=== PATIENT | female | born 1940 | race Caucasian/White ===

== ENCOUNTER 2019-11-05 18:01 | Outpatient (CLI) | payer MEDICARE, BC, SELFPAY ==
--- NOTE | ~2019-11-05 | XR_ITS ---
EXAMINATION: XR chest 2V EXAM DATE: 11/05/2019 18:23 INDICATION: Shortness of breath. TECHNIQUE: Frontal and lateral projections of the chest obtained and reviewed. Comparison is made to prior examination from 02/24/2017. FINDINGS: There is severe chronic hyperinflation. There is ill-defined right lower lobe superior seg mental airspace disease probably pneumonia. Clinical correlation, follow-up exam to resolution is ind icated to exclude underlying cancer. The lungs are otherwise clear. There are no pleural effusions. The cardiomediastinal silhouette is within normal limits. There is no pneumothorax suspected. Ther e is moderate to severe thoracolumbar scoliosis. Left shoulder replacement. IMPRESSION: Ill-defined right lower lobe segmental airspace disease, clinical correlation and follow- up to resolution. Reviewed, dictated and finalized at location A. IMPRESSION: Ill-defined right lower lobe segmental airspace disease, clinical c orrelation and follow-up to resolution.
== END 2019-11-05 18:02 | disposition home or self-care (01) ==
LOC: ANHIMG 18:05
PROVIDERS: PCP Internal Medicine; Visit Provider Clinical Nurse Specialist
DX: R06.02 Shortness of breath (principal); R91.8 Other nonspecific abnormal finding of lung field
CPT/HCPCS: 71046

== ENCOUNTER 2019-11-15 15:59 | Outpatient (CLI) | payer MEDICARE, BC, SELFPAY ==
--- NOTE | ~2019-11-15 | CT_ITS ---
EXAMINATION: CT chest wo con EXAM DATE: 11/15/2019 16:22 INDICATION: Worsening shortness of breath. COPD. Carcinoid tumor of the lung. TECHNIQUE: Spiral CT of the chest without contrast. Axial, coronal and sagittal images were reviewe d. Coronal maximum intensity pixel images of chest reviewed. The dose-length product (DLP) for this examination was 128.20 mGy-cm. The exposure was tailored according to patient size (auto mA exposur e control), and iterative reconstruction (ASIR) was used as additional dose reduction technique. Comp arison is made to prior examination from 05/23/2017. Correlation was made with chest x-ray 11/05/2019. FINDINGS: Again there is severe hyperinflation and moderate to severe emphysema. Interval developmen t of right lower lobe hilar masslike opacity measuring about 3 x 4 cm, difficult to distinguish from hilar bronchovascular structures on this noncontrast study. There is interlobular septal thickening r adiating out of this into the right lower lobe. There are no pleural or pericardial effusions. Tra cheobronchial tree is patent. Enlarged precarinal lymph node measuring 1.8 x 1.2 cm, another smalle r precarinal lymph node probably metastatic. There is no pneumothorax. Heart normal in size. The re is mild coronary arterial calcification, arterial sclerosis. Left liver lobe cyst measuring 4 cm. There is moderate thoracolumbar scoliosis. There is thoracic spondylosis without osteoblastic or os teolytic lesions identified. IMPRESSION: 1. Right infrahilar infiltrative masslike opacity, probably cancer. 2. Precarinal lymphadenopathy. 3. Moderate to severe hyperinflation and emphysema. Reviewed, dictated and finalized at location A.
== END 2019-11-15 16:00 | disposition home or self-care (01) ==
LOC: ANHIMG 16:00
PROVIDERS: PCP Internal Medicine; Visit Provider Clinical Nurse Specialist
DX: C7A.090 Malignant carcinoid tumor of the bronchus and lung (principal); R06.02 Shortness of breath; J44.9 Chronic obstructive pulmonary disease, unspecified; R91.8 Other nonspecific abnormal finding of lung field; R59.0 Localized enlarged lymph nodes; J43.9 Emphysema, unspecified
CPT/HCPCS: 71250

== ENCOUNTER 2019-12-03 12:20 | Outpatient (CLI) | payer MEDICARE, BC, SELFPAY ==
--- NOTE | ~2019-12-03 | PE_ITS ---
EXAMINATION: PET skull to mid thigh DATE: 12/03/2019 14:06 INDICATION: Lung cancer TECHNIQUE: Blood glucose level was 96 mg/dL. 9.098 mCi of 18-fluorodeoxyglucose (18-FDG) was administ ered i.v. Low dose computed tomography (CT) images were acquired from the base of the brain to the pr oximal thighs for attenuation correction and anatomic localization. Positron emission tomography (PET ) images were acquired in the same distribution beginning 60 minutes after injection. The dose-length product (DLP) was 222.79 mGy-cm. COMPARISON: 11/15/2019, 01/17/2017 FINDINGS: Head/neck: FDG uptake in the oral cavity and vocal cords without suspicious CT correlate is likely ph ysiologic. Chest: There is an approximately 4.6 x 3.4 cm right hilar mass with abnormal FDG uptake and SUV max o f 7.1. There are pathologically enlarged right hilar, precarinal, and subcarinal lymph nodes with abn ormal FDG uptake and SUV max of 6.9. There is mild pleural thickening of the right lower lobe with as sociated mild FDG uptake. There is severe emphysema. No pleural effusion or pneumothorax is identifie d. The heart size is normal. There is calcified coronary artery atherosclerosis. Abdomen/pelvis/proximal thighs: There is a subtle 1.8 cm hypoattenuating lesion in liver segment III with abnormal FDG uptake and SUV max of 4.5. A second area of abnormal FDG uptake is seen in liver se gment which appears to correspond to a subtle 1 cm lesion. This demonstrates an SUV max of 3.9. A 4.9 cm cyst is present in the left hepatic lobe. The gallbladder is surgically absent. Physiologic FD G activity is present in the bowel and urinary tract. The spleen, pancreas, and adrenal glands are no rmal. The left kidney is unremarkable. Nonobstructing stones are present in the right kidney. There i s calcified atherosclerosis of the aorta and many of the other arteries. No pathologically enlarged a bdominal or pelvic lymph nodes are identified. There is no free intraperitoneal gas or evidence of aly wel obstruction. There is a chronic 5.5 cm cystic lesion of the left adnexa without suspicious FDG up take. Musculoskeletal: No abnormal FDG uptake is identified. There is severe cervical and thoracolumbar spo ndylosis. There are changes of left total shoulder arthroplasty. IMPRESSION: 1. Right hilar mass with abnormal FDG uptake, consistent with primary bronchogenic carcinoma. 2. Right hilar and mediastinal lymphadenopathy, liver lesions, and right pleural thickening, consiste nt with metastatic disease. Reviewed, dictated and finalized at location A. IMPRESSION: 1. Right hilar mass with abnormal FDG uptake, consistent with primary bronchoge cathy carcinoma. 2. Right hilar and mediastinal lymphadenopathy, liver lesions, and right pleura l thickening, consistent with metastatic disease.
[2019-12-03 12:44] LABS: Glucose Point of Care 96 (65-105)
== END 2019-12-03 12:21 | disposition home or self-care (01) ==
PROVIDERS: PCP Internal Medicine
DX: C34.01 Malignant neoplasm of right main bronchus (principal); R59.0 Localized enlarged lymph nodes; K76.9 Liver disease, unspecified
CPT/HCPCS: 78815; A9552

== ENCOUNTER 2019-12-30 14:30 | Outpatient (CLI) | payer MEDICARE, BC, SELFPAY ==
--- NOTE | ~2019-12-30 | CT_ITS ---
EXAMINATION: CT brain wo/w con EXAM DATE: 12/30/2019 15:17 INDICATION: Lung cancer, headache. Acute intractable headache. TECHNIQUE: Spiral CT of the head was performed without contrast. Axial, coronal and sagittal images were reviewed.. Patient was then injected with 100 cc Omnipaque 350 intravenous contrast and reimaged . Postcontrast axial, coronal, sagittal reformatted images reviewed. The dose-length product (DLP) f or this examination was 1059.33 mGy-cm. The exposure was tailored according to patient size, and ite rative reconstruction (ASIR) was used as additional dose reduction technique. Comparison is made to p rior examination from 02/24/2017. FINDINGS: There is no acute intraparenchymal hemorrhage. No evidence of intraparenchymal brain mass lesion. No evidence of acute infarction. Please note that initial head CT has limited sensitivity f or small or acute infarctions. There is mild periventricular and subcortical hypodensity, nonspecific but probably related to small vessel ischemic disease. There is moderate prominence of the sulci a nd ventricles related to cerebral atrophy. There is intracranial carotid arteriosclerosis. There a re no extra-axial collections. There is no mass effect or midline shift. Patient has had bilateral ocular lens surgery. Soft tissue is unremarkable. The visualized sinuses and mastoid air cells are well aerated. There are no areas of abnormal enhancement on the postcontrast images. IMPRESSION: 1. No acute intracranial findings. 2. Chronic age related findings. Reviewed, dictated and finalized at location A.
[2019-12-31 14:20] LABS: Estimated Glomerular Filt Rate 43
== END 2019-12-30 14:31 | disposition home or self-care (01) ==
LOC: ANHIMG 14:37
PROVIDERS: PCP Internal Medicine; Visit Provider Internal Medicine Medical Oncology
DX: C34.12 Malignant neoplasm of upper lobe, left bronchus or lung (principal); R51 Headache
CPT/HCPCS: 36415; 70470; Q9967

== ENCOUNTER 2020-01-05 04:50 | Inpatient (IN) | payer MEDICARE, BC, SELFPAY ==
[2020-01-05] VITALS (9 sets, daily range): BP systolic 106–160; BP diastolic 53–98; PULSE 66–84; RESP 15–22; TEMP 36.8–37.7; O2SAT 96–100; BMI 16.1
--- NOTE | ~2020-01-05 | MR_ITS ---
EXAMINATION: MR brain/brain stem wo/w con DATE: 01/06/2020 16:47 INDICATION: Headache. Lung cancer. TECHNIQUE: Magnetic resonance imaging (MRI) of the brain and brainstem was performed without and with 7 mL MultiHance intravenous contrast. Sequences included sagittal and axial T1-weighted FSE, axial d iffusion-weighted FS EPI, axial T2*-weighted GRE, axial T2-weighted FLAIR Propeller, and axial T2-tee ghted Propeller. Postcontrast sequences included axial, sagittal, and coronal T1-weighted FSE. Appare nt diffusion coefficient (ADC) maps were created. COMPARISON: Head CT 01/05/2020 FINDINGS: There are scattered areas of nonspecific increased T2-weighted signal intensity in the cere bral white matter and anthony. There is no intracranial hemorrhage, acute infarction, or abnormal intrac ranial mass lesion. The ventricles are normal in size. There are likely changes of ocular lens replac ement surgeries. The paranasal sinuses are clear. The mastoid air cells are normal. IMPRESSION: 1. Moderate nonspecific cerebral white matter disease and pontine disease, which likely represents ch ronic small vessel ischemic disease. 2. No evidence of metastatic disease. Reviewed, dictated and finalized at location A. IMPRESSION: 1. Moderate nonspecific cerebral white matter disease and pontine disease, whic h likely represents chronic small vessel ischemic disease. 2. No evidence of metastatic disease.
--- NOTE | ~2020-01-05 | XR_ITS ---
XR chest 2V DATE: 01/05/2020 07:39 INDICATION: Worsening shortness of breath TECHNIQUE: AP and lateral chest on 01/05/2020 at 0736 hours COMPARISON: 11/05/2019 PA and lateral chest 11/15/2019 CT chest FINDINGS: There is increased right perihilar mass density since 11/05/2019, suggesting right lung lina gnancy and associated adenopathy. There is some patchy infiltrate in the right mid and lower lung zon es. There are More B-lines identified in the right lower lung; interstitial tumor spread is not exc luded; differential diagnosis includes interstitial edema, possibly due to malignant venous obstructi on versus less likely interstitial pneumonitis. Bilateral hyperinflation consistent with COPD. Heart size is normal. There is aortic calcification. Left glenohumeral joint replacement. Dominant osteopenia. Scoliosis and degenerative changes of the t horacic and lumbar spine. IMPRESSION: Increased right perihilar mass density suggesting lung cancer and adenopathy; right lower lung currently B-lines, which may indicate lymphangitic spread of tumor or interstitial edema or les s likely interstitial pneumonitis. Mild right mid and lower lung infiltrate COPD Reviewed, dictated and finalized at location A. IMPRESSION: Increased right perihilar mass density suggesting lung cancer and a denopathy; right lower lung currently B-lines, which may indicate lymphangitic spread of tumor or interstitial edema or less likely interstitial pneumonitis. Mild right mid and lower lung infiltrate COPD
--- NOTE | ~2020-01-05 | CT_ITS ---
EXAMINATION: CT brain wo con DATE: 01/05/2020 06:35 INDICATION: Headache, vomiting. History of lung cancer. TECHNIQUE: Computed tomography (CT) of the head was performed without intravenous contrast. The mA wa s adjusted according to patient size. Iterative reconstruction technique was employed. Exam dose: 60 5.33 mGy-cm total exam DLP. COMPARISON: 12/30/2019 CT brain FINDINGS: Bilateral vertebral artery, basilar artery and bilateral carotid siphon internal carotid ar mackenzie calcifications. There is nonspecific diminished attenuation of the cerebral white matter, likely due to chronic small vessel ischemic changes. Small left basal ganglia chronic lacunar infarct. There is no evidence of intracranial hemorrhage, midline shift or mass effect. No intracranial mass l esion is evident. No subdural or epidural hematoma. No orbital mass lesion. Included paranasal sinuses and mastoid air cells are unremarkable. No fracture or bone destruction of the cranial vault. IMPRESSION: Cerebral atherosclerosis and chronic small vessel ischemic changes of the cerebral white matter Small chronic lacunar infarct of the left basal ganglia No acute intracranial finding or significant change since 12/30/2019 Reviewed, dictated and finalized at Location A. Reviewed, dictated and finalized at location A.
--- NOTE | ~2020-01-05 | XR_ITS ---
EXAMINATION: XR lumbar puncture diagnostic EXAM DATE: 01/08/2020 10:10 INDICATION: Persistent headache. Neck pain. TECHNIQUE: Procedure performed and completed on 01/08/2020 10:10. Informed consent was obtained from the patient for doing this procedure. I discussed benefits and risks including bleeding, infection, backache and headache. Alternatives also discussed. The DAP for this procedure was 0.3 Gycm2. A timeout procedure was performed. The back was prepped in standard sterile fashion with Betadine. L3/4 entry site was chosen under fluoroscopic guidance and infiltrated with 1% lidocaine. The thecal sac was then accessed from a right paracentral approach using a 3.5 22G needle. Opening pressure determined to be 9 centimeters, normal. 12 mL of clear cerebral spinal fluid were t hen drained and placed in 4 consecutive vials which were labeled and sent to lab for analysis. There were no immediate complications. IMPRESSION: Status post fluoroscopic guided lumbar puncture. Reviewed, dictated and finalized at location A.
--- NOTE | 2020-01-05 05:05 | ED.GENADULT ---
HPI - General Adult General Chief complaint: Headache <Kely Hanna MD - Last Filed: 01/05/20 07:37> Stated complaint: panic attack <Kely Hanna MD - Last Filed: 01/05/20 07:37> Time Seen by Provider: 01/05/20 05:05 <Kely Hanna MD - Last Filed: 01/05/20 07:37> Source: patient, family and EMS <Kely Hanna MD - Last Filed: 01/05/20 07:37> Mode of arrival: EMS <Kely Hanna MD - Last Filed: 01/05/20 07:37> Limitations: no limitations <Kely Hanna MD - Last Filed: 01/05/20 07:37> History of Present Illness HPI narrative: Patient is an 79-year-old female with a history of primary bronchogenic carcinoma, metastases to the liver, currently scheduled to start chemotherapy next week who presents for evaluation of headache pain. Patient with chronic headache pain over the past several weeks. Patient has tried at home morphine and oxycodone with minimal improvement in her symptoms. At times, the patient's headache is severe and causes her to have panic attacks. This evening, the patient awakened with a headache and began to have rapid breathing. called EMS and patient was transported to our facility. Patient has had some nausea and vomiting although she currently denies abdominal pain. Patient is asleep in the room, when I awaken her she states her headache is improving. Patient follows with Dr. Montanez. Patient recently was seen in this ER and had a CT head which was negative for metastases. <Kely Hanna MD - Last Filed: 01/05/20 07:37> Related Data Home medications: Home Medications Medication Instructions Recorded Confirmed acetaminophen 325 mg tablet 650 mg PO Q6H PRN tablet 05/01/19 01/05/20 aspirin 81 mg chewable tablet 81 mg PO DAILY 05/01/19 01/05/20 multivitamin 1 tablet PO DAILY 05/01/19 01/05/20 pramipexole 0.125 mg tablet 0.125 mg PO DAILY tablet 05/01/19 01/05/20 dexamethasone 4 mg PO TID 01/05/20 01/05/20 olaparib 200 mg PO BID 01/05/20 01/05/20 ondansetron 4 mg PO Q6H PRN 01/05/20 01/05/20 pantoprazole 40 mg PO QAM 01/05/20 01/05/20 <Kely Hanna MD - Last Filed: 01/05/20 07:37> Allergies/adverse reactions: Allergies Allergy/AdvReac Type Severity Reaction Status Date / Time alendronate sodium Allergy Unknown Unknown Verified 01/05/20 05:07 bupropion Allergy Unknown Unknown Verified 01/05/20 05:07 cilostazol Allergy Unknown Unknown Verified 01/05/20 05:07 ferrous sulfate Allergy Unknown Unknown Verified 01/05/20 05:07 hydrocodone Allergy Unknown Unknown Verified 01/05/20 05:07 levofloxacin Allergy Unknown Unknown Verified 01/05/20 05:07 loratadine Allergy Unknown Unknown Verified 01/05/20 05:07 Penicillins Allergy Unknown Unknown Verified 01/05/20 05:07 Quinolones Allergy Unknown Unknown Verified 01/05/20 05:07 <Kely Hanna MD - Last Filed: 01/05/20 07:37> Review of Systems Review of Systems: Narrative: CONSTITUTIONAL: Denies fever CARDIOVASCULAR: Denies chest pain RESPIRATORY: Denies cough or dyspnea. GASTROINTESTINAL: Denies abdominal pain, reports nausea and vomiting SKIN: Denies rash MUSCULOSKELETAL: Denies back pain NEUROLOGIC: Reports improving headache <Kely Hanna MD - Last Filed: 01/05/20 07:37> [facility] Past Medical History Medical History: Medical History (Updated 01/05/20 @ 17:43 by Alayna Dos Santos PA-C) Anemia History of iron deficiency anemia with subsequent iron overload, no longer on medication. Anxiety and depression Chronic kidney disease, stage 3 Baseline creatinine between 1.0 and 1.20. Chronic obstructive pulmonary disease Chronic respiratory failure with hypoxia Connective tissue disorder Poorly documented in her chart over the years, and the patient her cannot provide any further details. Dementia Diastolic dysfunction Echocardiogram in November 2015 showed normal left ventricular systolic function and size with impaired diastolic relaxation grade 1
[2020-01-05] MEDS: SODIUM CHLORIDE 0.9% IV 1,000 ML 999 ML IV CONT (06:07)
[2020-01-05] MEDS: METOCLOPRAMIDE HCL INJ 10 MG/2 ML VIAL IV PUSH (06:07)
--- NOTE | 2020-01-05 06:22 | PC.NURSE ---
unable to draw labs due to pt taken to ct.
[2020-01-05 06:51] LABS: Basophils Percent Auto 0.1 % (0.2-1.2); Eosinophils Absolute Auto 0.1 K/mm3 (0-0.3); Eosinophils Percent Auto 0.2 % (0-4.4); Hematocrit 34.6 % (37.0-47.0); Hemoglobin 11.5 g/dL (12.0-15.0); Immature Granulocyte Absolute 0.12 K/mm3 (0.00-0.031); Immature Granulocyte Percent A 0.6 % (0-0.5); Lymphocytes Absolute Auto 0.46 K/mm3 (0.9-3.2); Lymphocytes Percent Auto 2.1 % (18.3-44.2); Mean Corpuscular HGB Conc 33.2 g/dl (32-36); Mean Corpuscular Hemoglobin 33.3 pg (26-34); Mean Corpuscular Volume 100.3 fl (80-100); Mean Platelet Volume 9.1 fl (7.4-10.4); Monocytes Absolute Auto 1.3 K/mm3 (0.1-0.6); Neutrophils Absolute Auto 19.8 K/mm3 (1.3-6.7); Platelet Count Result 256 k/mm3 (150-375); Red Blood Count 3.45 M/mm3 (4.2-5.4); Red Cell Distribution Width 13.5 % (11.5-14.5); White Blood Count 21.7 K/mm3 (4.5-10.0)
[2020-01-05 07:03] LABS: Lipase 147 U/L (23-300)
[2020-01-05 07:04] LABS: Alanine Aminotransferase 117 U/L (4-35); Alkaline Phosphatase 133 U/L (38-126); Anion Gap 8.2 mmol/L (7-16); Aspartate Amino Transferase 109 U/L (14-36); Bilirubin,Total 0.3 mg/dL (0.2-1.3); Blood Urea Nitrogen 30 mg/dL (7-17); Calcium 7.9 mg/dL (8.4-10.2); Carbon Dioxide 32 mmol/L (22-30); Chloride 95 mmol/L (98-107); Estimated Glomerular Filt Rate 53; Glucose 130 mg/dL (65-105); Potassium 4.2 mmol/L (3.4-5.0); Sodium 131 mmol/L (137-145)
[2020-01-05 08:47] LABS: Add Urine Microscopic? YES; Appearance Urine Clear (Clear); Bacteria Urine Trace /hpf; Bilirubin Urine Negative (Negative); Blood Urine 3+ (Negative); Color Urine Yellow (Yellow); Glucose Urine UA Negative (Negative); Ketones Urine Negative (Negative); Leukocyte Esterase Ur Negative LEU/UL (Negative); Mucus Urine Rare /lpf; Nitrate Urine Negative (Negative); Protein Urine Negative (Negative); RBC Urine >75 /hpf (0-2); Specific Grav Ur 1.015 (1.001-1.035); Squamous Epithelial Cell Urine Rare /hpf (Few); Urobilinogen Urine Negative mg/dL (<2.0)
--- NOTE | 2020-01-05 12:55 | ADMGEN ---
This patient, Kimberley Martin, was admitted to Medical Room 344-01. Patient/family oriented to hospital policies and general routines including ID bracelet, bed and alarms, visiting hours, pain management, procedures, bathroom and other care routines, personal items, smoking policy, room service/diet, and visiting hours. Valuables list has been completed. Information on how to activate the Rapid Response Team has been discussed. Patient/Family are encouraged to report perceived risks to care and to ask questions if they do not understand what they are told or what they should do.
--- NOTE | 2020-01-05 17:00 | PM.IMHP ---
H&P: HPI History of Present Illness Chief complaint: Headache and panic attack. Narrative: Kimberley Martin Is an 79-year-old female with dementia, COPD, chronic respiratory failure on home oxygen, peripheral vascular disease, hypertension, chronic kidney disease, anxiety, and lung cancer who presented to the emergency department earlier this morning via EMS from home for evaluation of a headache with complaints of a panic attack. She is very hard of hearing and with her underlying dementia, she is only a fair historian and thus her provides additional information, with the patient's permission. She was diagnosed with lung cancer 2018 was treated with radiation therapy. Sometime in October she was complaining of increasing shortness of breath and a chest x-ray showed ill-defined airspace disease in the right lower lobe. A chest CT done several weeks thereafter to follow-up for resolution demonstrated a right infrahilar infiltrate suspicious for cancer with precarinal lymphadenopathy. She then had a PET scan on 12/04/2019 which showed abnormal uptake in the right hilar mass consistent with bronchogenic carcinoma as well as right hilar mediastinal lymphadenopathy, liver lesions, and right pleural thickening consistent with metastatic disease. She is followed by Dr. Nikhil Montanez, and is to start on 2 oral chemotherapy agents that have yet to arrive, according to her . In any event, the patient has been complaining of a headache for a couple of months, each day stating it is severe and is the worst headache I have ever had. Tylenol, sumatriptan, excerderin, and morphine have had no affect on the headache, which she describes as a constant throbbing diffusely throughout the head. She was started on dexamethasone by Dr. Montanez in hopes that would help the headache, but unfortunately it has not. With regards to her anxiety, she was more recently started on BuSpar which seems to have helped somewhat. reports that she gets increasingly anxious with her headaches and shortness of breath. Last night her reports that she was screaming in pain from her headache, was extremely anxious, and also complained of nausea so he called 911. At the time my evaluation she is noted to be cachectic but states that her weight is stable and that she has a pretty good appetite however she does not drink fluid very often. She frequently has a cough but she cannot say whether or not it is productive. At the time my evaluation she is sitting up in bed and appears calm however she does moan on occasion, telling me that her head is throbbing. She denies overt photosensitivity. No auditory or visual changes, focal weakness, or paresthesias. No dysarthria or dysphagia. No current nausea. She has not had vomiting or diarrhea. She denies dysuria and hematuria. No abdominal pain. No chest or pleuritic pain. No fever, chills, or sweats. Review of Systems Review of Systems: Narrative: Twelve systems were reviewed with pertinent positives and negatives as per HPI. Somewhat limited given her dementia, and she answers some of my questions with I cannot remember. Her does provide other information, however. She has not had any recent cold or flu symptoms. She frequently coughs due to her smoking history and COPD, but it really is not productive. No orthopnea, PND, or lower extremity edema. She has frequent pain in her legs due to known peripheral vascular disease of which she has been deemed not a candidate for surgical intervention. She is on aspirin daily and previously had been on clopidogrel. It is not unusual for her feet and toes to turned purple intermittently and they are at baseline cool. She is able to up and ambulate, going up and down their split-level home steps without issue albeit she will get short of breath. Denies concerns for aspiration. Except as documented, all other systems were reviewed and are negative. [facility] Past Medical Histor
[2020-01-05] MEDS: SODIUM CHLORIDE 0.9% IV 1,000 ML 75 ML IV CONT (18:31)
[2020-01-05 19:06] LABS: Sodium Urine Random 47 meq/L
[2020-01-05] MEDS: hydrOXYzine HCL 25 MG TABLET PO (20:00)
[2020-01-06] VITALS (7 sets, daily range): BP systolic 132–168; BP diastolic 66–78; PULSE 70–79; RESP 16–18; TEMP 35.9–37.2; O2SAT 97–100; BMI 16.9
--- NOTE | 2020-01-06 | ECG_ITS ---
Measurements Intervals Tok Rate: 84 P: 83 AL: 126 QRS: 54 QRSD: 75 T: 76 QT: 326 QTc: 387 Interpretive Statements SINUS RHYTHM POSSIBLE RIGHT ATRIAL ENLARGEMENT LEFT ATRIAL ENLARGEMENT POSSIBLE LEFT VENTRICULAR HYPERTROPHY BORDERLINE T WAVE ABNORMALITY- LATERAL LEADS BASELINE ARTIFACT- I, II, III BORDERLINE ECG Electronically Signed On 01-06-2020 9:35:03 CDT by Aubrey Moore D.O.
[2020-01-06] MEDS: hydrOXYzine HCL 25 MG TABLET PO ×3 (03:03→16:57)
[2020-01-06] MEDS: ACETAMINOPHEN 325 MG TABLET 650 MG PO ×2 (03:29→08:50)
[2020-01-06 06:30] LABS: Basophils Percent Auto 0.1 % (0.2-1.2); Eosinophils Absolute Auto 0.1 K/mm3 (0-0.3); Eosinophils Percent Auto 0.4 % (0-4.4); Hematocrit 35.3 % (37.0-47.0); Hemoglobin 11.2 g/dL (12.0-15.0); Immature Granulocyte Absolute 0.07 K/mm3 (0.00-0.031); Immature Granulocyte Percent A 0.5 % (0-0.5); Lymphocytes Absolute Auto 0.59 K/mm3 (0.9-3.2); Mean Corpuscular HGB Conc 31.7 g/dl (32-36); Mean Corpuscular Hemoglobin 32.2 pg (26-34); Mean Corpuscular Volume 101.4 fl (80-100); Mean Platelet Volume 9.2 fl (7.4-10.4); Monocytes Percent Auto 6.9 % (2.6-8.5); Neutrophils Absolute Auto 13.1 K/mm3 (1.3-6.7); Neutrophils Percent Auto 88.1 % (45.5-73.1); Platelet Count Result 262 k/mm3 (150-375); Red Blood Count 3.48 M/mm3 (4.2-5.4); Red Cell Distribution Width 13.5 % (11.5-14.5); White Blood Count 14.8 K/mm3 (4.5-10.0)
[2020-01-06 07:07] LABS: Alanine Aminotransferase 140 U/L (4-35); Albumin Level 2.9 g/dL (3.5-5.1); Alkaline Phosphatase 109 U/L (38-126); Anion Gap 9.9 mmol/L (7-16); Aspartate Amino Transferase 73 U/L (14-36); Bilirubin,Total 0.4 mg/dL (0.2-1.3); Blood Urea Nitrogen 20 mg/dL (7-17); Calcium 7.9 mg/dL (8.4-10.2); Carbon Dioxide 32 mmol/L (22-30); Chloride 93 mmol/L (98-107); Estimated Glomerular Filt Rate 60; Glucose 56 mg/dL (65-105); Magnesium 1.6 mg/dL (1.6-2.3); Potassium 3.9 mmol/L (3.4-5.0); Sodium 131 mmol/L (137-145)
[2020-01-06 08:09] LABS: Glucose Point of Care 77 (65-105)
[2020-01-06] MEDS: DONEPEZIL HCL 10 MG TABLET PO (08:41)
[2020-01-06] MEDS: amLODIPine BESYLATE 5 MG TABLET PO (08:41)
[2020-01-06] MEDS: DEXAMETHASONE 4 MG TABLET PO ×3 (08:41→16:54)
[2020-01-06] MEDS: ASPIRIN 81 MG CHEWABLE TABLET PO (08:41)
[2020-01-06] MEDS: MEMANTINE HCL XR 28 MG CAP PO (08:42)
[2020-01-06] MEDS: DULoxetine HCL 60 MG CAPSULE.DR PO (08:42)
[2020-01-06] MEDS: PRAMIPEXOLE 0.125 MG TABLET PO (08:42)
[2020-01-06] MEDS: lisinopriL 20 MG TABLET PO (08:42)
[2020-01-06] MEDS: PANTOPRAZOLE 40 MG TABLET PO (08:42)
[2020-01-06] MEDS: MULTIVITAMINS THERAPEUTIC TAB (*BKC) 1 TABLET PO (08:42)
[2020-01-06] MEDS: ENOXAPARIN 30 MG/0.3 ML SYRINGE SUB-Q (08:48)
[2020-01-06] MEDS: METOPROLOL SUCCINATE EXT REL 25 MG TABCR PO (08:48)
[2020-01-06] MEDS: FLUTICASONE/SALMETEROL 45-21 MCG INHALER 1 PUFF 2 PUFF INHALATION ×2 (10:21→21:09)
--- NOTE | 2020-01-06 12:59 | PM.IMPN ---
Progress Note: A&P Assessment and Plan (1) Infiltrate of right lung present on chest x-ray: Code(s): R91.8 - Other nonspecific abnormal finding of lung field Status: Acute Assessment and Plan: CXR revealed mild right mid and lower lung infiltrate concerning for pneumonia. She also has increased cough and leukocytosis. CXR revealed More B lines in the right lower lung which may indicate lymphatic tumor spread. Continue IV ceftriaxone and PO doxycycline. Both antibiotics were initiated 01/05/20. Sputum culture was ordered and pending. Urine antigens are pending. Continue supportive care with supplemental oxygen. Will test for COVID-19. (2) Elevated LFTs: Code(s): R79.89 - Other specified abnormal findings of blood chemistry Status: Acute Assessment and Plan: Presumably due to metastatic disease in the liver, as her abdominal exam is benign. She was recently advised to stop her statin. Continue to monitor. Dr. Montanez has been consulted. (3) Headache: Code(s): R51 - Headache Status: Acute Assessment and Plan: She continues to have a headache despite taking acetaminophen, sumatriptan, Excedrin, morphine, and dexamethasone. She describes a tension headache. Brain CT showed no acute findings. Will order MRI brain. Dr. Montanez has been consulted and input is appreciated. Discussed with Dr. Montanez. Will give one dose of toradol to see if this helps. Check ACTH and ESR/CRP. Plan to consult Dr. Jacinto with neurology. Dr. Jacinto has agreed to see her for further recommendations. She is established with Dr. Hutchins, a neurologist at [facility]. Continue analgesics PRN. (4) Mild dehydration: Code(s): E86.0 - Dehydration Status: Resolved Assessment and Plan: She received IV fluid rehydration and is tolerating PO fluid intake well. (5) Chronic obstructive pulmonary disease: Code(s): J44.9 - Chronic obstructive pulmonary disease, unspecified Status: Acute Assessment and Plan: Chronic with no acute issues. Continue home respiratory regimen. (6) Chronic respiratory failure with hypoxia: Code(s): J96.11 - Chronic respiratory failure with hypoxia Status: Acute Assessment and Plan: Chronic. Continue baseline home oxygen requirement. (7) Malignant carcinoid tumor of lung: Code(s): C7A.090 - Malignant carcinoid tumor of the bronchus and lung Status: Acute Assessment and Plan: Awaiting the arrival of to oral chemotherapy agents, due to begin treatment this week. Management per Dr. Montanez. (8) Anxiety and depression: Code(s): F41.9 - Anxiety disorder, unspecified; F32.9 - Major depressive disorder, single episode, unspecified Status: Acute Assessment and Plan: Continue hydroxyzine. She had been taking BuSpar but stopped for unclear reasons. Would consider restarting this in the outpatient setting as her said it did help somewhat. Subjective Date/time seen: 01/06/20 12:59 Interval history: Mrs. Martin is an 79 y.o. female who is seen in follow-up for community acquired pneumonia, headaches, and anxiety. She reports headaches for the past few months. She was recently started on dexamethasone and her reports mild improvement from dexamethasone. At the time of my evaluation, she has just finished eating her lunch and reports 6/10 pain. She describes it as a frontal, throbbing pain. The pain is bilateral. She does feel like it improved since presentation to the emergency department yesterday. She reports that her appetite is good. She denies nausea, vomiting, and abdominal pain. She denies dizziness and lightheadedness. She reports chronic dyspnea but does not feel more short of breath at this time. She denies chest pain. She reports increased cough recently. History is only fair due to her underlying dementia and her assists with her history. I had
[2020-01-06] MEDS: methocarbamoL 500 MG TABLET PO ×2 (13:56→21:18)
[2020-01-06] MEDS: KETOROLAC 15 MG/ML VIAL (*BKC) IV PUSH (16:57)
--- NOTE | 2020-01-06 18:01 | WPDONCCN ---
Assessment and Plan Assessment and plan (1) Small cell lung cancer: Code(s): C34.90 - Malignant neoplasm of unspecified part of unspecified bronchus or lung Status: Acute Assessment and Plan: 1. When patient receives the oral chemotherapy - Temodar tomorrow, I recommend to start it with Zofran 4 mg before Temodar Days 1 - 21 every 28 days. 2. She does have incurable lung cancer - Stage IV 3. Family aware of poor prognosis 4. Due to ECOG PS and dementia, she is not a candidate for IV chemo or immunotherapy (2) Headache: Code(s): R51 - Headache Status: Acute Assessment and Plan: MRI of brain today is normal without any pathology Agree with LP She would best be served over at [facility] on Neurology team since she has an established neurologist there regarding her dementia Continue with Robaxin and current analgesic agents (3) Elevated LFTs: Code(s): R79.89 - Other specified abnormal findings of blood chemistry Status: Acute Assessment and Plan: due to metastatic cancer to liver HPI Data of Consult Date/Time: 01/06/20 18:01 Requesting Physician: Sarah Girard PA-C Primary Care Provider: Angel Hargrove DO Consult Narrative Narrative: Kimberley Martin is a 79 year old female who recently was diagnosed with extensive stage small cell lung cancer and now presents with intractable severe cephalgia arising bitemporal area. Over the past 2 weeks, she has had progressive intermittent to constant sharp pain bitemporally and occasional has occipital pain. CT scan of head outpatient was negative for pathology. PET/CT scan showed metastatic lung cancer to liver and med./ lungs but no hypermetabolic activity of the head or neck. Due to poor performance status and underlying dementia, she is not a candidate for IV chemo or immunotherapy. I recommended oral drug therapy with Temozolomide 75 mg/m2/d Days 1 - 21 every 28 days. In addition, she has tumor DNA mutation of BRCA1 and can be treated with PARP inhibitor. She has yet to start chemo pills. Medically, she has tried NSAIDS, steroids, MS, Imitrex and APAP without any improvement in her headaches. She is more comfortable this pm after Robaxin. She has a good appetite. Review of Systems Constitutional: Constitutional: Denies anorexia, Denies fatigue, Denies fever(s), Denies night sweats, Denies weakness and Reports weight loss Eyes: Eyes: Denies blurry vision ENT: Denies dysphagia, Denies dizziness, Denies epistaxis, Denies mouth lesions, Denies mouth pain, Denies odynophagia, Denies disequilibrium and Denies sore throat Cardiovascular: Cardiovascular: Denies chest pain, Denies leg edema, Reports dyspnea and Reports dyspnea on exertion Respiratory: Respiratory: Denies cough, Reports dyspnea and Reports dyspnea on exertion Gastrointestinal: Gastrointestinal: Denies abdominal pain, Denies constipation, Denies dysphagia, Denies diarrhea, Denies nausea, Denies odynophagia and Denies vomiting Genitourinary: Genitourinary: Denies hematuria, Denies nocturia, Denies hot flashes, Denies dysuria, Denies pelvic pain and Denies vaginal dryness Musculoskeletal: Musculoskeletal: Denies back pain, Denies myalgias, Denies arthralgias, Denies muscle weakness and Denies numbness Integumentary/Breasts: Skin/Breast: Denies breast swelling, Denies breast pain, Denies breast mass, Denies rash and Denies unusual bruising Neurologic: Reports Normal hearing present, Reports confusion, Denies dizziness, Reports headache(s), Denies focal weakness, Reports memory loss, Denies numbness, Denies paresthesias, Denies disequilibrium and Denies weakness Psychiatric: Psychiatric: Denies anxiety and Denies depression Endocrine: Endocrine: Denies fatigue Hematologic/Lymphatic: Hematologic/Lymphatic: Denies easy bleeding, Denies easy bruising and Denies lymphadenopathy [facility] Past Medical History Medical History (Updated 01/06/20 @ 18:14 by Nikhil Bob
[2020-01-07 03:01] LABS: Glucose Point of Care 133 (65-105)
[2020-01-07 05:04] VITALS: BP 152/70; PULSE 67; RESP 12; TEMP 36.6; O2SAT 100
--- NOTE | 2020-01-07 06:10 | CONS_ITS ---
DATE OF CONSULTATION: HISTORY: This 79 years old right-handed female has been admitted to [facility] for the complaints of headache with panic attacks in addition to the comorbid conditions of 1. COPD. 2. Chronic respiratory failure for which she is on home oxygen. 3. Peripheral vascular disease. 4. Hypertension. 5. Chronic kidney disease. 6. History of carcinoma of the lung. 7. History of dementia. As per the information available, she was diagnosed to have cancer of the lung in 2018, which was treated with radiation treatment, has been experiencing increasing shortness of breath, though the x-rays of the chest have shown only ill-defined airspace disease in the right lower lobe. CT of the chest demonstrated right infrahilar infiltration suspicious for the carcinoma with precarinal lymphadenopathy. She had a PET scan on 12/04/2019, which revealed abnormal uptake in the right hilar mass consistent with bronchogenic carcinoma as well as right hilar mediastinal lymphadenopathy, liver lesion, right pleural thickening, all consistent with metastatic disease. She is followed by Dr. Nikhil Montanez who is to start on oral chemotherapy that yet have to arrive according to her , but again in the meantime, the patient has been complaining of headache of several months duration. Has been taking Tylenol, sumatriptan, Excedrin, and morphine. The headache is constant, throbbing in nature, diffuse in location, though she has been taking dexamethasone as per the instruction of Dr. Montanez, but unfortunately, the headaches have not been relieved. Recently, she was started on the BuSpar. Last night, she was screaming in pain from her headache, was extremely anxious and was complaining of nausea as well, so she was brought to the emergency room and has been admitted here. Neurology consultation has been obtained because of the ongoing dementia along with a headache as well. PAST MEDICAL HISTORY: Her other information includes the iron-deficiency anemia, chronic kidney disease stage 3, COPD with respiratory failure, hypoxia, connective tissue disorder, dementia, diastolic dysfunction, essential hypertension, malignant carcinoid tumor of the lung diagnosed in 2018, nephrolithiasis, osteoporosis, paroxysmal supraventricular tachycardia, peripheral vascular disease, and arteriovenous malformation with vitamin B12 deficiency as well. PAST SURGICAL HISTORY: She has undergone bilateral cataract extraction, cholecystectomy, reversal total replacement of the left shoulder joint, and tubal ligation. LABORATORY DATA: Evaluation up until now includes CBC with WBC 21.7, repeat 14.8, hemoglobin 11.5, and the platelet count of 256. Her basic metabolic panel is fairly normal except low sodium 131, which is repeat the same. Her glucose initially was 130, repeat is 56. GFR is only 53, and calcium 7.9. Hepatic enzymes are elevated with AST 109, ALT 117, alkaline phos 133, total protein 5, and albumin 3.0. UA with urine nightly with blood positive more than 75 RBCs, 7 to 9 WBCs, and 3 to 4 only hyaline casts. She also had the MRI of the brain, which documented nonspecific white matter disease and pontine disease, but no evidence of metastatic disease. No evidence of ventriculomegaly. CT of the head was done before the MRI, which was suggestive of the same underlying findings. Chest x-ray has documented increased perihilar mass on the right side suggesting the carcinoma of the lung with adenopathy. PHYSICAL EXAMINATION: GENERAL: Today, she was awake, alert, cooperative, in no obvious acute distress, sitting at the bedside. in the chair at the bedside. She was awake, alert, following the instruction fairly well. She had difficulties in recent and remote recall. Speech was not dysphasic, not dysarthric, not dy
[2020-01-07 06:28] LABS: Basophils Percent Auto 0.1 % (0.2-1.2); Hematocrit 29.5 % (37.0-47.0); Hemoglobin 9.9 g/dL (12.0-15.0); Immature Granulocyte Absolute 0.11 K/mm3 (0.00-0.031); Immature Granulocyte Percent A 0.7 % (0-0.5); Lymphocytes Absolute Auto 0.36 K/mm3 (0.9-3.2); Lymphocytes Percent Auto 2.4 % (18.3-44.2); Mean Corpuscular HGB Conc 33.6 g/dl (32-36); Mean Corpuscular Hemoglobin 32.8 pg (26-34); Mean Corpuscular Volume 97.7 fl (80-100); Monocytes Absolute Auto 0.9 K/mm3 (0.1-0.6); Monocytes Percent Auto 6.2 % (2.6-8.5); Neutrophils Absolute Auto 13.6 K/mm3 (1.3-6.7); Neutrophils Percent Auto 90.6 % (45.5-73.1); Platelet Count Result 240 k/mm3 (150-375); Red Blood Count 3.02 M/mm3 (4.2-5.4); Red Cell Distribution Width 12.9 % (11.5-14.5)
[2020-01-07 06:52] LABS: Alanine Aminotransferase 77 U/L (4-35); Albumin Level 2.8 g/dL (3.5-5.1); Alkaline Phosphatase 109 U/L (38-126); Anion Gap 8.3 mmol/L (7-16); Aspartate Amino Transferase 32 U/L (14-36); Bilirubin,Total 0.2 mg/dL (0.2-1.3); Blood Urea Nitrogen 22 mg/dL (7-17); CRP 8.1 mg/dL (<1.0); Calcium 7.9 mg/dL (8.4-10.2); Carbon Dioxide 33 mmol/L (22-30); Chloride 93 mmol/L (98-107); Estimated Glomerular Filt Rate > 60; Glucose 127 mg/dL (65-105); Potassium 4.3 mmol/L (3.4-5.0); Sodium 130 mmol/L (137-145)
[2020-01-07] MEDS: FLUTICASONE/SALMETEROL 45-21 MCG INHALER 1 PUFF 2 PUFF INHALATION ×2 (07:50→21:47)
[2020-01-07 07:53] VITALS: O2SAT 97
[2020-01-07 07:53] LABS: Glucose Point of Care 110 (65-105)
[2020-01-07] MEDS: ENOXAPARIN 30 MG/0.3 ML SYRINGE SUB-Q (08:15)
[2020-01-07] MEDS: DONEPEZIL HCL 10 MG TABLET PO (08:15)
[2020-01-07] MEDS: DULoxetine HCL 60 MG CAPSULE.DR PO (08:15)
[2020-01-07] MEDS: lisinopriL 20 MG TABLET PO (08:15)
[2020-01-07] MEDS: amLODIPine BESYLATE 5 MG TABLET PO (08:15)
[2020-01-07] MEDS: DEXAMETHASONE 4 MG TABLET PO (08:15)
[2020-01-07] MEDS: ASPIRIN 81 MG CHEWABLE TABLET PO (08:15)
[2020-01-07 08:16] VITALS: PULSE 78
[2020-01-07] MEDS: METOPROLOL SUCCINATE EXT REL 25 MG TABCR PO (08:16)
[2020-01-07] MEDS: MEMANTINE HCL XR 28 MG CAP PO (08:16)
[2020-01-07] MEDS: hydrOXYzine HCL 25 MG TABLET PO ×3 (08:16→17:51)
[2020-01-07] MEDS: methocarbamoL 500 MG TABLET PO ×4 (08:16→21:05)
[2020-01-07] MEDS: PANTOPRAZOLE 40 MG TABLET PO (08:16)
[2020-01-07] MEDS: MULTIVITAMINS THERAPEUTIC TAB (*BKC) 1 TABLET PO (08:16)
[2020-01-07] MEDS: PRAMIPEXOLE 0.125 MG TABLET PO (08:16)
--- NOTE | 2020-01-07 09:28 | WPDNEUROPN ---
Progress Note: A&P Assessment and Plan (1) Anxiety and depression: Code(s): F41.9 - Anxiety disorder, unspecified; F32.9 - Major depressive disorder, single episode, unspecified Status: Acute (2) Headache: Code(s): R51 - Headache Status: Acute (3) Dementia without behavioral disturbance: Qualifiers: Dementia type: Alzheimer's disease Alzheimer's disease onset: unspecified onset Qualified Code(s): G30.9 - Alzheimer's disease, unspecified; F02.80 - Dementia in other diseases classified elsewhere without behavioral disturbance Code(s): F03.90 - Unspecified dementia without behavioral disturbance Status: Acute Additional Plan dementia with underlying cancer a spinal tap being done today to rule out chronic infections or malignancy Review of Systems Review of Systems: All systems reviewed & are unremarkable except as noted in HPI and below Exam Const: General: cooperative, comfortable, no acute distress, alert and awake Nutritional Appearance: thin Orientation/consciousness: oriented to person Limitations: other limitations (dementia) HENMT: Head: normal to inspection Ears: hearing grossly normal bilaterally General nose exam: Normal external nose present and No nasal discharge present Face and sinus: normal facial exam Mouth: Yes Normal oral and palatal mucosa present Eyes: General: appearance normal, both eyes and all related structures Neck: Neck: full ROM and no lymphadenopathy Thyroid: thyroid normal Resp: Effort & Inspection: normal respiratory effort and able to speak in complete sentences Auscultation: clear to auscultation bilaterally Cardio: Rate: regular rate Rhythm: regular rhythm GI: Auscultation: normal bowel sounds Skin: General skin exam: no rashes or lesions noted Neuro: General: oriented to person Cranial nerves: Yes CN's II-XII intact bilaterally, Yes Equal, round and reactive pupils present, Yes Nystagmus not present, Yes Normal facial strength present, Yes facial symmetry, Yes Midline tongue present and Yes Ability to bilaterally elevate shoulders present Cognition (Neuro): abnormal cognition Speech: normal speech Gait exam (Neuro): Unable to assess gait Motor exam (neuro): Abnormal motor strength present Sensory Exam: normal sensation Deep tendon reflexes (DTR's): Right triceps reflex intensity grade: 1+, Left triceps reflex intensity grade: 1+, Rt Biceps (C5, C6): 1+, Left biceps reflex intensity grade: 1+, Right brachioradialis reflex intensity grade: 1+, Left brachioradialis reflex intensity grade: 1+, Right patellar reflex intensity grade: 1+, Left patellar reflex intensity grade: 1+, Right ankle reflex intensity grade: 1+ and Left ankle reflex intensity grade: 1+ Plantar Reflex Responses: downgoing: bilateral Coordination: [id number] test normal Extrem: General: normal to inspection Psych: Speech and movement: Clear speech present Affect: normal affect Attitude: cooperative Thought process: Impoverished thought process present Thought content: Yes Normal thought content present Insight: Fair insight present (Psych) and Limited insight present (Psych) Judgement: Limited judgement present (Psych) Objective Data Vital Signs Vital Signs: Vital Signs - 24 hr 01/06/20 10:22 01/06/20 14:00 01/06/20 20:26 Temperature 35.9 C L 36.9 C Pulse Rate 79 72 Respiratory Rate 18 18 Blood Pressure 149/78 H 132/66 Pulse Oximetry 97 99 98 01/06/20 21:10 01/07/20 05:04 01/07/20 07:53 Temperature 36.6 C Pulse Rate 70 67 Respiratory Rate 12 Blood Pressure 152/70 H Pulse Oximetry 97 100 97 01/07/20 08:16 Temperature Pulse Rate 78 Respiratory Rate Blood Pressure Pulse Oximetry Intake/Output Intake/Output: Intake & Output 01/04/20 01/05/20 01/06/20 01/07/20 23:59 23:59 23:59 23:59 Intake Total 2605 1900 200 Output Total 400 1700 600 Balance 2205 200 -400 Meds/Results Medications: Active Medication
[2020-01-07 09:50] LABS: Erythrocyte Sedimentation Rate 28 mm/hr (0-20)
[2020-01-07 10:00] LABS: INR 1.1; Prothrombin Time 13.6 Seconds (11.1-14.7)
[2020-01-07 10:01] LABS: Partial Thromboplastin Time 32.7 SECONDS (22.3-36.8)
[2020-01-07 11:40] LABS: Glucose Point of Care 205 (65-105)
--- NOTE | 2020-01-07 14:13 | PM.IMPN ---
Progress Note: A&P Assessment and Plan (1) Headache: Code(s): R51 - Headache Status: Acute Assessment and Plan: She continues to have a headache despite taking acetaminophen, sumatriptan, Excedrin, morphine, and dexamethasone. She describes a tension headache. Brain CT showed no acute findings. Brain MRI revealed moderate nonspecific cerebral white matter disease and pontine disease, which likely represents chronic small vessel ischemic disease. There was no evidence of metastatic disease. Dr. Jacinto has been consulted and will plan for lumbar puncture tomorrow. ASA and lovenox will be held. Dr. Montanez has been consulted and input is appreciated. Tray has provided improvment. Plan to contiue robaxin. ACTH was ordered due to posibility of paraneoplastic syndrome and is pending. ESR/CRP are mildly elevated at 28 and 8.1 respectively. She has no jaw claudication and is on dexamethasone without siginificant relief so giant cell arteritis is felt to be less likely. She is established with Dr. Hutchins, a neurologist who specalizes in memory, at [facility]. Continue analgesics PRN. I did call to try to transfer her to [facility] for a neurology consultation after discussion with Dr. Jacinto and Dr. Montanez per request of the patient/patient's family. Dr. Aguayo with neurology discussed the case with Dr. Jacinto and Dr. Cain and recommended we proceed with lumbar puncture here. (2) Infiltrate of right lung present on chest x-ray: Code(s): R91.8 - Other nonspecific abnormal finding of lung field Status: Acute Assessment and Plan: CXR revealed mild right mid and lower lung infiltrate concerning for pneumonia. She also has increased cough and leukocytosis. CXR revealed More B lines in the right lower lung which may indicate lymphatic tumor spread. Continue IV ceftriaxone and PO doxycycline. Both antibiotics were initiated 01/05/20. Sputum culture was ordered and pending. Urine antigens are pending. Continue supportive care with supplemental oxygen. COVID-19 testing was performed and is pending. (3) Elevated LFTs: Code(s): R79.89 - Other specified abnormal findings of blood chemistry Status: Acute Assessment and Plan: Presumably due to metastatic disease in the liver, as her abdominal exam is benign. LFTs are mildly improved. She was recently advised to stop her statin as well which may be helping. Continue to monitor. Dr. Montanez has been consulted. (4) Mild dehydration: Code(s): E86.0 - Dehydration Status: Resolved Assessment and Plan: She received IV fluid rehydration and is tolerating PO fluid intake well. (5) Chronic obstructive pulmonary disease: Code(s): J44.9 - Chronic obstructive pulmonary disease, unspecified Status: Acute Assessment and Plan: Chronic with no acute issues. Continue home respiratory regimen. (6) Chronic respiratory failure with hypoxia: Code(s): J96.11 - Chronic respiratory failure with hypoxia Status: Acute Assessment and Plan: Chronic. Continue baseline home oxygen requirement. (7) Malignant carcinoid tumor of lung: Code(s): C7A.090 - Malignant carcinoid tumor of the bronchus and lung Status: Acute Assessment and Plan: Awaiting the arrival of to oral chemotherapy agents. These should arrive today. Management per Dr. Montanez. (8) Anxiety and depression: Code(s): F41.9 - Anxiety disorder, unspecified; F32.9 - Major depressive disorder, single episode, unspecified Status: Acute Assessment and Plan: Continue hydroxyzine. She had been taking BuSpar but stopped for unclear reasons. Would consider restarting this in the outpatient setting as her said it did help somewhat. Time Spent With Patient Time with patient: 15 - 25 minutes Subjective Date/time seen: 01/07/20 14:13 Interval history: Mrs. Martin is an 79 y.o. female who is seen i
[2020-01-07 14:29] VITALS: BP 130/80; PULSE 78; RESP 18; TEMP 35.6; O2SAT 93
[2020-01-07 16:36] LABS: Glucose Point of Care 138 (65-105)
[2020-01-07] MEDS: NICOTINE (*PBKC) 21 MG PATCH 1 PATCH TRANSDERM (21:11)
[2020-01-07 21:33] LABS: Glucose Point of Care 151 (65-105)
[2020-01-07 21:50] VITALS: PULSE 71; RESP 18; O2SAT 96
[2020-01-07 21:58] VITALS: BP 146/85; PULSE 72; RESP 18; TEMP 36.8; O2SAT 98
--- NOTE | 2020-01-07 22:04 | WPDONCPN ---
Progress Note: A&P Assessment and Plan (1) Small cell lung cancer: Code(s): C34.90 - Malignant neoplasm of unspecified part of unspecified bronchus or lung Status: Acute Assessment and Plan: 1. When patient receives the oral chemotherapy - Temodar tomorrow, I recommend to start it with Zofran 4 mg before Temodar Days 1 - 21 every 28 days. 2. She does have incurable lung cancer - Stage IV 3. Family aware of poor prognosis 4. Due to ECOG PS and dementia, she is not a candidate for IV chemo or immunotherapy (2) Headache: Code(s): R51 - Headache Status: Acute Assessment and Plan: MRI of brain today is normal without any pathology Lumbar puncture will be performed through interventional radiology tomorrow. For now, patient will continue with her current analgesic regimen of NSAIDs, dexamethasone, Robaxin and morphine. She seems to have some improvement in her symptoms. (3) Elevated LFTs: Code(s): R79.89 - Other specified abnormal findings of blood chemistry Status: Acute Assessment and Plan: due to metastatic cancer to liver Time Spent With Patient Time with patient: less than 15 minutes Review of Systems Constitutional Constitutional: Denies anorexia, Denies fatigue, Denies fever(s), Reports headache(s), Denies night sweats, Reports weakness and Reports weight loss Eyes Eyes: Denies blurry vision ENT Reports Normal hearing present, Denies dysphagia, Denies dizziness, Reports headache(s), Denies epistaxis, Denies mouth lesions, Denies mouth pain, Denies odynophagia, Denies disequilibrium and Denies sore throat Cardiovascular Cardiovascular: Denies chest pain, Denies leg edema, Reports dyspnea and Reports dyspnea on exertion Respiratory Respiratory: Denies cough, Reports dyspnea and Reports dyspnea on exertion Gastrointestinal Gastrointestinal: Denies abdominal pain, Denies constipation, Denies dysphagia, Denies diarrhea, Denies nausea, Denies odynophagia and Denies vomiting Genitourinary Genitourinary: Denies hematuria, Denies nocturia, Denies hot flashes, Denies dysuria, Denies pelvic pain and Denies vaginal dryness Musculoskeletal Musculoskeletal: Denies back pain, Denies myalgias, Denies arthralgias, Denies muscle weakness and Denies numbness Integumentary/Breasts Skin/Breast: Denies breast swelling, Denies breast pain, Denies breast mass, Denies rash and Denies unusual bruising Neurologic Reports Normal hearing present, Reports confusion, Denies dizziness, Reports headache(s), Denies focal weakness, Reports memory loss, Denies numbness, Denies paresthesias, Denies disequilibrium and Denies weakness Psychiatric Psychiatric: Denies anxiety, Reports confusion, Denies depression and Reports memory loss Endocrine Endocrine: Denies fatigue Hematologic/Lymphatic Hematologic/Lymphatic: Denies easy bleeding, Denies easy bruising and Denies lymphadenopathy Exam Const: General: cooperative, comfortable, alert, awake, Physically active, anxious and confusion Nutritional Appearance: thin and underweight Orientation/consciousness: patient oriented x3 and confusion HENMT: Head: normal to inspection and atraumatic Ears: hearing grossly normal bilaterally General nose exam: Normal external nose present and Normal nares present Face and sinus: normal facial exam and sinuses nontender Mouth: Yes Normal oral and palatal mucosa present and Yes moist mucous membranes Teeth and gingiva: dentition normal Eyes: General: appearance normal, both eyes and all related structures Conjunctivae: conjunctivae normal Sclera: sclerae normal Pupils: Equal, round and reactive pupils present EOM: EOMs intact bilaterally Neck: Neck: full ROM, no lymphadenopathy and supple Chest: Chest palpation & inspection: no masses Breast/axilla inspection: normal inspection of the axillae Resp: Effort & Inspection: normal respiratory effort Auscultation: rhonchi and wheezes Percussion: percussion normal Cardio:
[2020-01-08] VITALS (7 sets, daily range): BP systolic 134–149; BP diastolic 72–81; PULSE 73–80; RESP 14–18; TEMP 36.5–37; O2SAT 95–98
[2020-01-08 05:50] LABS: Basophils Percent Auto 0.1 % (0.2-1.2); Eosinophils Absolute Auto 0.1 K/mm3 (0-0.3); Eosinophils Percent Auto 0.4 % (0-4.4); Hematocrit 31.8 % (37.0-47.0); Hemoglobin 10.7 g/dL (12.0-15.0); Immature Granulocyte Absolute 0.09 K/mm3 (0.00-0.031); Immature Granulocyte Percent A 0.6 % (0-0.5); Lymphocytes Absolute Auto 0.83 K/mm3 (0.9-3.2); Lymphocytes Percent Auto 5.9 % (18.3-44.2); Mean Corpuscular HGB Conc 33.6 g/dl (32-36); Mean Corpuscular Hemoglobin 32.5 pg (26-34); Mean Corpuscular Volume 96.7 fl (80-100); Mean Platelet Volume 8.8 fl (7.4-10.4); Monocytes Absolute Auto 1.2 K/mm3 (0.1-0.6); Monocytes Percent Auto 8.6 % (2.6-8.5); Neutrophils Absolute Auto 11.8 K/mm3 (1.3-6.7); Neutrophils Percent Auto 84.4 % (45.5-73.1); Platelet Count Result 323 k/mm3 (150-375); Red Blood Count 3.29 M/mm3 (4.2-5.4); Red Cell Distribution Width 13.1 % (11.5-14.5)
[2020-01-08 06:01] LABS: Alanine Aminotransferase 65 U/L (4-35); Albumin Level 2.9 g/dL (3.5-5.1); Alkaline Phosphatase 108 U/L (38-126); Anion Gap 6.9 mmol/L (7-16); Aspartate Amino Transferase 31 U/L (14-36); Bilirubin,Total 0.2 mg/dL (0.2-1.3); Blood Urea Nitrogen 22 mg/dL (7-17); CRP 4.3 mg/dL (<1.0); Calcium 8.2 mg/dL (8.4-10.2); Carbon Dioxide 36 mmol/L (22-30); Chloride 94 mmol/L (98-107); Estimated Glomerular Filt Rate > 60; Glucose 87 mg/dL (65-105); Magnesium 1.7 mg/dL (1.6-2.3); Potassium 3.9 mmol/L (3.4-5.0); Sodium 133 mmol/L (137-145)
[2020-01-08 07:58] LABS: Glucose Point of Care 81 (65-105)
--- NOTE | 2020-01-08 08:40 | PC.NURSE ---
To ultrasound for lumbar puncture via bed.
--- NOTE | 2020-01-08 09:55 | PC.NURSE ---
Returned from Lumbar puncture procedure via bed.
[2020-01-08] MEDS: MEMANTINE HCL XR 28 MG CAP PO (10:18)
[2020-01-08] MEDS: DULoxetine HCL 60 MG CAPSULE.DR PO (10:19)
[2020-01-08] MEDS: lisinopriL 20 MG TABLET PO (10:19)
[2020-01-08] MEDS: DEXAMETHASONE 4 MG TABLET PO (10:20)
[2020-01-08] MEDS: amLODIPine BESYLATE 5 MG TABLET PO (10:21)
[2020-01-08] MEDS: MULTIVITAMINS THERAPEUTIC TAB (*BKC) 1 TABLET PO (10:21)
[2020-01-08] MEDS: PANTOPRAZOLE 40 MG TABLET PO (10:21)
[2020-01-08] MEDS: DONEPEZIL HCL 10 MG TABLET PO (10:21)
[2020-01-08] MEDS: NICOTINE (*PBKC) 21 MG PATCH 1 PATCH TRANSDERM (10:22)
[2020-01-08] MEDS: METOPROLOL SUCCINATE EXT REL 25 MG TABCR PO (10:22)
[2020-01-08 10:23] LABS: Glucose CSF 66 mg/dL (40-70)
[2020-01-08] MEDS: PRAMIPEXOLE 0.125 MG TABLET PO (10:23)
[2020-01-08] MEDS: methocarbamoL 500 MG TABLET PO ×4 (10:24→20:24)
[2020-01-08] MEDS: FLUTICASONE/SALMETEROL 45-21 MCG INHALER 1 PUFF 2 PUFF INHALATION ×2 (10:36→20:58)
[2020-01-08 10:42] LABS: Total Protein CSF 40 mg/dL (12-60)
[2020-01-08 10:42] LABS: Appearance CSF Clear (Clear); CSF source CSF; Color CSF Colorless (Colorless); Nucleated Cell CSF 17 /uL (0-5); Red Blood Cell CSF 3 (0-2)
[2020-01-08 10:43] LABS: Monocytes CSF 40 % (15-45)
[2020-01-08 10:46] LABS: Lymphocytes CSF 60 % (40-80)
--- NOTE | 2020-01-08 11:09 | WPDNEUROPN ---
Progress Note: A&P Assessment and Plan (1) Headache: Code(s): R51 - Headache Status: Acute Additional Plan awaiting spinal fluid results Review of Systems Review of Systems: All systems reviewed & are unremarkable except as noted in HPI and below Objective Data Vital Signs Vital Signs: Vital Signs - 24 hr 01/07/20 14:29 01/07/20 21:50 01/07/20 21:58 Temperature 35.6 C L 36.8 C Pulse Rate 78 71 72 Respiratory Rate 18 18 18 Blood Pressure 130/80 146/85 H Pulse Oximetry 93 96 98 01/08/20 05:11 01/08/20 10:22 01/08/20 10:24 Temperature 36.5 C Pulse Rate 80 80 80 Respiratory Rate 16 16 Blood Pressure 142/81 H Pulse Oximetry 97 96 01/08/20 10:37 Temperature Pulse Rate Respiratory Rate Blood Pressure Pulse Oximetry 96 Intake/Output Intake/Output: Intake & Output 01/05/20 01/06/20 01/07/20 01/08/20 23:59 23:59 23:59 23:59 Intake Total 2605 1900 1170 480 Output Total 400 1700 1250 800 Balance 2205 200 -80 -320 Meds/Results Medications: Active Medications Generic Name Dose Route Start Last Admin Trade Name Freq PRN Reason Stop Dose Admin Amlodipine Besylate 5 mg 01/06/20 09:00 01/08/20 10:21 Norvasc PO 5 mg DAILY TREVOR Administration Aspirin 81 mg 01/06/20 09:00 01/07/20 08:15 Aspirin Chewable PO 81 mg DAILY TREVOR Administration Dexamethasone 4 mg 01/07/20 09:00 01/08/20 10:20 Dexamethasone Po PO 4 mg DAILY TREVOR Administration Dextrose 12.5 gm 01/06/20 17:35 Dextrose 50% Syringe IV PUSH PRN PRN Hypoglycemia Protocol Donepezil HCl 10 mg 01/06/20 09:00 01/08/20 10:21 Aricept PO 10 mg DAILY TREVOR Administration Duloxetine HCl 60 mg 01/06/20 09:00 01/08/20 10:19 Cymbalta PO 60 mg DAILY TREVOR Administration Enoxaparin Sodium 30 mg 01/06/20 09:00 01/07/20 08:15 Lovenox SUB-Q 30 mg DAILY TREVOR Administration Glucagon 1 mg 01/06/20 17:35 Glucagon For Inj IM PRN PRN Hypoglycemia Protocol Glucose 15 gm 01/06/20 17:35 Glutose 15 PO PRN PRN Hypoglycemia Protocol Hydroxyzine HCl 25 mg 01/05/20 17:43 01/07/20 17:51 Atarax Tablet PO 25 mg TID PRN Administration anxiety Ceftriaxone Sodium/Dextrose 1 gm in 50 mls @ 100 mls/hr 01/05/20 18:00 01/07/20 18:21 Rocephin 1 Gm/D5w 50 Ml IVPB Infused Q24H TREVOR Infusion Doxycycline Hyclate 100 mg/ 100 mls @ 100 mls/hr 01/05/20 21:00 01/08/20 10:14 Dextrose IVPB 100 mls/hr Q12HR TREVOR Administration Dextrose 1,000 mls @ 100 mls/hr 01/06/20 17:35 Dextrose 5% 1,000 Ml IVPB PRN PRN Hypoglycemia Protocol Lisinopril 20 mg 01/06/20 09:00 01/08/20 10:19 Prinivil PO 20 mg DAILY TREVOR Administration Memantine 28 mg 01/06/20 09:00 01/08/20 10:18 Namenda Xr PO 28 mg DAILY TRE[facility] Administration Methocarbamol 500 mg 01/06/20 21:00 01/08/20 10:24 Robaxin PO 500 mg QID [facility] Administration Metoprolol Succinate 25 mg 01/06/20 09:00 01/08/20 10:22 Toprol Xl PO 25 mg DAILY TREVOR Administration Morphine Sulfate 2 mg 01/06/20 12:30 Morphine Sulfate Inj IV PUSH Q4H PRN Pain Rated 7-10 Multivitamins Therapeutic 1 tablet 01/06/20 09:00 01/08/20 10:21 Multivitamins Therapeutic(*Bkc PO 1 tablet DAILY [facility] Administration Nicotine 1 patch 01/07/20 18:40 01/08/20 10:22 Nicoderm Cq 21 Mg TRANSDERM 1 patch QAM [facility] Administration Non-Formulary Medication 1 inhalation 01/06/20 09:00 Umeclidinium INHALATION 02/05/20 09:01 DAILY [facility] Ondansetron HCl 4 mg 01/05/20 11:14 Zofran Inj IV PUSH Q4H PRN Nausea Pantoprazole Sodium 40 mg 01/06/20 09:00 01/08/20 10:21 Protonix PO 40 mg QAM [facility] Administration Pramipexole Dihydrochloride 0.125 mg 01/06/20 09:00 01/08/20 10:23 Mirapex PO 0.125 mg DAILY [facility] Administration Fluticasone/Salmeterol 2 puff 01/05/20 20:00 07
[2020-01-08 11:51] LABS: Glucose Point of Care 94 (65-105)
[2020-01-08] MEDS: hydrOXYzine HCL 25 MG TABLET PO (12:21)
[2020-01-08 14:41] LABS: SARS-CoV-2 RNA PCR Negative
[2020-01-08 16:58] LABS: Glucose Point of Care 139 (65-105)
--- NOTE | 2020-01-08 17:25 | PM.IMPN ---
Progress Note: A&P Assessment and Plan (1) Headache: Qualifiers: Headache chronicity pattern: acute headache Headache type: unspecified Intractability: intractable Qualified Code(s): R51 - Headache Code(s): R51 - Headache Status: Acute Assessment and Plan: Headaches have been going on 2 to 3 months, worsening lately. She has tried acetaminophen, sumatriptan, Excedrin, morphine, and dexamothasone. She seems to have had some relief with the Robaxin. MRI brain shows no evidence of metastatic disease. Apprecitate Dr Jacinto's and Dr Montanez's recommendations. LP results are pending. ESR/CRP mildly elevated. She is established with Dr Hutchins with memory care at [facility]. (2) Infiltrate of right lung present on chest x-ray: Code(s): R91.8 - Other nonspecific abnormal finding of lung field Status: Acute Assessment and Plan: CXR revealed mild right mid and lower lung infiltrate concerning for pneumonia. She also has increased cough and leukocytosis. CXR revealed More B lines in the right lower lung which may indicate lymphatic tumor spread. Continue IV ceftriaxone and PO doxycycline (day 4). Sputum culture was ordered and pending. Urine antigens are pending. Continue supportive care with supplemental oxygen. COVID-19 testing was performed and is negative. (3) Elevated LFTs: Code(s): R79.89 - Other specified abnormal findings of blood chemistry Status: Acute Assessment and Plan: Improved. Presumably due to metastatic disease in the liver, as her abdominal exam is benign. LFTs are mildly improved. She was recently advised to stop her statin as well which may be helping. Continue to monitor. (4) Chronic obstructive pulmonary disease: Qualifiers: COPD type: unspecified COPD Qualified Code(s): J44.9 - Chronic obstructive pulmonary disease, unspecified Code(s): J44.9 - Chronic obstructive pulmonary disease, unspecified Status: Acute Assessment and Plan: Chronic with no acute issues. Continue home respiratory regimen. (5) Chronic respiratory failure with hypoxia: Code(s): J96.11 - Chronic respiratory failure with hypoxia Status: Chronic Assessment and Plan: Chronic. Continue baseline home oxygen requirement. (6) Malignant carcinoid tumor of lung: Code(s): C7A.090 - Malignant carcinoid tumor of the bronchus and lung Status: Acute Assessment and Plan: Awaiting the arrival of to oral chemotherapy agents. Management per Dr. Montanez. (7) Anxiety and depression: Code(s): F41.9 - Anxiety disorder, unspecified; F32.9 - Major depressive disorder, single episode, unspecified Status: Acute Assessment and Plan: Stable, continue home medications. Subjective Date/time seen: 01/08/20 1200 Interval history: Mrs. Martin is an 79 y.o. female who is seen in follow-up for community acquired pneumonia, headaches, and anxiety. She is feeling okay at this time and although she reports persistent headache, it seems she has had some relief with robaxin. A bit difficult to obtain history as she looks to her to help her answer most questions due to dementia. Headache is frontal and seems to be a bit less constant than days prior. Her at bedside thinks she has been more comfortable today. She denies chest pain or shortness of breath. She denies neck pain. Able to tolerate oral intake without nausea or vomiting. Review of Systems Review of Systems: Narrative: Twelve systems were reviewed with pertinent positives and negatives as per HPI. Exam Narrative: Exam Narrative: General: Thin elderly female comfortably sitting up in bed in no acute distress. HEENT: Normocephalic, EOMI, oral
--- NOTE | 2020-01-08 17:39 | PHAR ---
HOME MED VERIFIED INCRUSE ELLIPTA 1 INHALATION ONCE DAILY
[2020-01-08 20:36] LABS: Glucose Point of Care 208 (65-105)
[2020-01-09 05:08] LABS: Adrenocorticotropic Hormone 17 pg/mL (6-50)
[2020-01-09 05:44] VITALS: BP 158/76; PULSE 73; RESP 20; TEMP 36.9; O2SAT 97
[2020-01-09 06:37] LABS: Basophils Percent Auto 0.1 % (0.2-1.2); Eosinophils Percent Auto 0.3 % (0-4.4); Hematocrit 32.3 % (37.0-47.0); Hemoglobin 10.9 g/dL (12.0-15.0); Immature Granulocyte Absolute 0.08 K/mm3 (0.00-0.031); Immature Granulocyte Percent A 0.7 % (0-0.5); Lymphocytes Absolute Auto 0.81 K/mm3 (0.9-3.2); Lymphocytes Percent Auto 7.3 % (18.3-44.2); Mean Corpuscular HGB Conc 33.7 g/dl (32-36); Mean Corpuscular Hemoglobin 32.6 pg (26-34); Mean Corpuscular Volume 96.7 fl (80-100); Mean Platelet Volume 9.2 fl (7.4-10.4); Monocytes Absolute Auto 1.3 K/mm3 (0.1-0.6); Monocytes Percent Auto 11.4 % (2.6-8.5); Neutrophils Percent Auto 80.2 % (45.5-73.1); Platelet Count Result 310 k/mm3 (150-375); Red Blood Count 3.34 M/mm3 (4.2-5.4); Red Cell Distribution Width 13.2 % (11.5-14.5); White Blood Count 11.2 K/mm3 (4.5-10.0)
[2020-01-09 06:49] LABS: Anion Gap 5.5 mmol/L (7-16); Blood Urea Nitrogen 20 mg/dL (7-17); Calcium 8.2 mg/dL (8.4-10.2); Carbon Dioxide 35 mmol/L (22-30); Chloride 92 mmol/L (98-107); Estimated Glomerular Filt Rate > 60; Glucose 79 mg/dL (65-105); Magnesium 1.5 mg/dL (1.6-2.3); Potassium 3.5 mmol/L (3.4-5.0); Sodium 129 mmol/L (137-145)
[2020-01-09 07:43] LABS: Glucose Point of Care 72 (65-105)
[2020-01-09 09:00] VITALS: O2SAT 95
[2020-01-09] MEDS: FLUTICASONE/SALMETEROL 45-21 MCG INHALER 1 PUFF 2 PUFF INHALATION (09:00)
[2020-01-09] MEDS: MAGNESIUM SULF 2 GM/WATER 50ML 2 GM/50 ML BAG IVPB (09:16)
[2020-01-09] MEDS: MEMANTINE HCL XR 28 MG CAP PO (09:19)
[2020-01-09] MEDS: PRAMIPEXOLE 0.125 MG TABLET PO (09:19)
[2020-01-09] MEDS: NICOTINE (*PBKC) 21 MG PATCH 1 PATCH TRANSDERM (09:20)
[2020-01-09] MEDS: PANTOPRAZOLE 40 MG TABLET PO (09:20)
[2020-01-09] MEDS: MULTIVITAMINS THERAPEUTIC TAB (*BKC) 1 TABLET PO (09:20)
[2020-01-09] MEDS: amLODIPine BESYLATE 5 MG TABLET PO (09:20)
[2020-01-09 09:21] VITALS: PULSE 76
[2020-01-09] MEDS: DULoxetine HCL 60 MG CAPSULE.DR PO (09:21)
[2020-01-09] MEDS: METOPROLOL SUCCINATE EXT REL 25 MG TABCR PO (09:21)
[2020-01-09] MEDS: methocarbamoL 500 MG TABLET PO ×3 (09:21→17:28)
[2020-01-09] MEDS: DEXAMETHASONE 4 MG TABLET PO (09:21)
[2020-01-09 09:22] VITALS: RESP 20; O2SAT 94
[2020-01-09] MEDS: lisinopriL 20 MG TABLET PO (09:22)
[2020-01-09] MEDS: DONEPEZIL HCL 10 MG TABLET PO (09:22)
[2020-01-09 11:43] LABS: Glucose Point of Care 72 (65-105)
[2020-01-09 14:00] VITALS: BP 142/70; PULSE 85; RESP 16; TEMP 37.2; O2SAT 100
[2020-01-09 16:59] LABS: Lyme Disease Ab (IgM), Blot Positive (Negative); Lyme Disease Ab(IgG), Blot Negative (Negative)
--- NOTE | 2020-01-09 17:10 | PM.DS ---
DS: Admitting Diagnosis Admitting Diagnosis Admitting Diagnosis: Malignant neoplasm of unspecified part of unspecified bronchus or lung DS: Discharge Diagnosis Discharge Diagnosis (1) Headache: Qualifiers: Headache type: unspecified Headache chronicity pattern: acute headache Intractability: intractable Qualified Code(s): R51 - Headache Code(s): R51 - Headache Status: Acute Assessment and Plan: Some relief with Robaxin. CSF results mentioned below and will be followed to final; she will follow up with Dr Montanez and Dr Jacinto. CT brain and MRI brain show no etiology to explain headaches and no evidence of metastatic disease to the brain. (2) Infiltrate of right lung present on chest x-ray: Code(s): R91.8 - Other nonspecific abnormal finding of lung field Status: Acute Assessment and Plan: Concerning for pneumonia in the setting of leukocytosis, although she has been on steroids. Chest x-ray also shows More B lines in the right lower lobe lung which may indicate lymphatic spread of the tumor. She was treated empirically with a course of doxycycline and rocephin. (3) Elevated LFTs: Code(s): R79.89 - Other specified abnormal findings of blood chemistry Status: Acute Assessment and Plan: Presumably due to metastatic disease in the liver, as her abdominal exam is benign. (4) Chronic obstructive pulmonary disease: Qualifiers: COPD type: unspecified COPD Qualified Code(s): J44.9 - Chronic obstructive pulmonary disease, unspecified Code(s): J44.9 - Chronic obstructive pulmonary disease, unspecified Status: Acute Assessment and Plan: No acute respiratory issues. (5) Chronic respiratory failure with hypoxia: Code(s): J96.11 - Chronic respiratory failure with hypoxia Status: Chronic Assessment and Plan: She is at her baseline oxygen requirement. (6) Malignant carcinoid tumor of lung: Code(s): C7A.090 - Malignant carcinoid tumor of the bronchus and lung Status: Acute Assessment and Plan: Following with Dr Montanez for same. Due to begin oral chemotherapy. (7) Anxiety and depression: Code(s): F41.9 - Anxiety disorder, unspecified; F32.9 - Major depressive disorder, single episode, unspecified Status: Acute Assessment and Plan: Continue hydroxyzine. Stable day of discharge, pleasant. DS: Summary Hospital Course Hospital Course: Date of Service 01/09/20 Ms. 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 She has been having headaches for 2 to 3 months and in the last 1 day were worsening in intensity. She has been following with Dr Montanez regarding her malignancy and has plans to start oral chemotherapy soon. She was evaluated by Dr Montanez during this stay and by neurology, Dr Jacinto. MRI brain demonstrated moderate changes that likely represented chronic small-vessel ischemic disease; no evidence of metastatic disease in the brain. Lumbar puncture was performed 01/07. Some CSF results are still pending at discharge but namely, cytology demonstrated few lymphocytes and monocytes with no malignant cells or acute inflammation. She was afebrile. CSF culture is pending with no growth to date and will be followed to final. Etiology of her headaches is unclear however may be related with her new diagnosis of cancer. After trials of several medications, she had some improvement with Robaxin. She was hemodynamically stable for discharge 01/09/20 with instructions to follow up with
[2020-01-09] MEDS: DOXYCYCLINE HYCLATE 100 MG TABLET PO (17:27)
[2020-01-09 19:04] LABS: VDRL Quantitative CSF Nonreactive (Nonreactive)
[2020-01-09 19:59] LABS: Pneumococcal Antigen Urine Not Detected (Not Detected)
[2020-01-09 20:00] LABS: Cryptococcus Antigen Not Detected (Not Detected); Cryptococcus Specimen Source CSF
[2020-01-09 21:25] LABS: Legionella pneumophila Ag Ur Not Detected (Not Detected)
[2020-01-10 20:13] LABS: Varicella IgM Antibody <=0.90 (<=0.90)
[2020-01-13 05:21] LABS: Osmolality, Urine 446 mOsm/kg (50-1200)
[2020-01-13 13:52] LABS: Reference Lab Test Result Not Detected
[2020-01-13 14:04] LABS: CMV DNA Quant PCR IU/mL <200 IU/mL (<200); Cytomegalovirus DNA Quant PCR <2.30 log IU/mL (<2.30); Cytomegalovirus DNA Source Plasma
[2020-01-13 14:24] LABS: Epstein Barr Virus DNA PCR Not Detected (Not Detected); Source Epstein Barr Virus CSF
[2020-01-13 15:30] LABS: West Nile Virus, IgM <0.90 index (<0.90)
[2020-01-13 15:35] LABS: CSF Toxoplasma Source CSF
[2020-01-14 15:28] LABS: Coccidioides Ab to F Ag (IgG) NEGATIVE; Coccidioides Ab to TP Ag (IgM) NEGATIVE
[2020-01-17 07:27] LABS: Albumin, CSF 15.4 mg/dL (8.0-42.0); Albumin, Serum 2.9 g/dL (3.2-4.6); IgG Index, CSF 0.56 (<0.66); IgG, CSF 1.4 mg/dL (0.8-7.7); Immunoglobulin G, Serum 469 mg/dL (600-1540); Myelin Basic Protein, CSF <2.0 mcg/L (2.0-4.0); Synthesis Rate IgG, CSF -0.3 mg/24 h (-9.9-3.3)
--- NOTE | 2020-01-21 11:01 | PC.NURSE ---
No growth in CSF cx.
== END 2020-01-09 19:09 | disposition home or self-care (01) | DRG 102 ==
LOC: ANHED 07:37 → ANH3MED 11:45
PROVIDERS: Emergency Medicine; Physician Assistant; Psychiatry & Neurology Neurology; Admitting Provider Internal Medicine; Emergency Provider General Practice; PCP Internal Medicine; Visit Provider Physician Assistant
DX: R51 Headache (principal); J18.9 Pneumonia, unspecified organism; C34.90 Malignant neoplasm of unspecified part of unspecified bronchus or lung; C78.7 Secondary malignant neoplasm of liver and intrahepatic bile duct; J96.11 Chronic respiratory failure with hypoxia; C77.9 Secondary and unspecified malignant neoplasm of lymph node, unspecified; E46 Unspecified protein-calorie malnutrition; Z68.1 Body mass index [BMI] 19.9 or less, adult; R64 Cachexia; J44.0 Chronic obstructive pulmonary disease with (acute) lower respiratory infection; Z20.828 Contact with and (suspected) exposure to other viral communicable diseases; E86.0 Dehydration; R11.2 Nausea with vomiting, unspecified; R91.8 Other nonspecific abnormal finding of lung field; D72.829 Elevated white blood cell count, unspecified; F41.8 Other specified anxiety disorders; F17.210 Nicotine dependence, cigarettes, uncomplicated; F03.90 Unspecified dementia, unspecified severity, without behavioral disturbance, psychotic disturbance, mood disturbance, and anxiety; I12.9 Hypertensive chronic kidney disease with stage 1 through stage 4 chronic kidney disease, or unspecified chronic kidney disease; N18.3 Chronic kidney disease, stage 3 (moderate); M81.0 Age-related osteoporosis without current pathological fracture; I73.9 Peripheral vascular disease, unspecified; E53.8 Deficiency of other specified B group vitamins; R74.0 Nonspecific elevation of levels of transaminase and lactic acid dehydrogenase [LDH]; Z96.612 Presence of left artificial shoulder joint; F41.0 Panic disorder [episodic paroxysmal anxiety]; Z99.81 Dependence on supplemental oxygen; Z98.42 Cataract extraction status, left eye; Z98.41 Cataract extraction status, right eye; Z90.49 Acquired absence of other specified parts of digestive tract; Z79.82 Long term (current) use of aspirin
CPT/HCPCS: 36415; 51701; 62328; 70450; 70553; 71046; 80048; 80053; 81001; 82024; 82040; 82042; 82570; 82784; 82945; 83605; 83690; 83735; 83873; 83916; 83930; 83935; 84157; 84300; 84443; 85025; 85610; 85652; 85730; 86140; 86403; 86592; 86617; 86635; 86787; 86788; 87015; 87070; 87086; 87102; 87116; 87205; 87206; 87255; 87449; 87497; 87529; 87635; 87798; 87799; 87899; 88108; 89051; 93005; 94640; 96361; 96365; 96366; 96367; 96372; 96375; 96376; 99285; A9270; A9577; C9803; G0378; J0131; J0696; J1650; J1885; J2765; J3475; J7030; J8540; U0003

== ENCOUNTER 2020-02-04 12:15 | Outpatient (RCR) | payer MEDICARE, BC, SELFPAY ==
[2020-02-04] VITALS (12 sets, daily range): BP systolic 106–183; BP diastolic 44–89; PULSE 67–73; RESP 14–22; TEMP 37.2–38.2; O2SAT 98–100
[2020-02-04 14:42] LABS: Hematocrit 15.2 % (37.0-47.0)
[2020-02-04 14:58] LABS: Immature Platelet Fraction Pct 4.6 % (0.9-11.2); Mean Platelet Volume 10.7 fl (7.4-10.4)
[2020-02-04 14:59] LABS: Platelet Count Result 8 k/mm3 (150-375)
== END 2020-05-04 23:59 | disposition home or self-care (01) ==
LOC: ANHCPCTRAN 12:15
PROVIDERS: PCP Internal Medicine; Visit Provider Internal Medicine Medical Oncology
DX: C34.12 Malignant neoplasm of upper lobe, left bronchus or lung (principal)
CPT/HCPCS: 36415; 36430; 85014; 85018; 85049; 85055; 86850; 86900; 86901; 86923; J7050; P9016; P9034

== ENCOUNTER → 2020-02-14 14:36 | Outpatient (CLI) | payer MEDICARE, BC, SELFPAY ==
--- NOTE | ~2020-02-14 | CT_ITS ---
EXAMINATION: CT chest w con DATE: 02/14/2020 15:08 INDICATION: Malignant neoplasm of upper lobe of left lung, worsening sob TECHNIQUE: Computed tomography (CT) of the chest was performed with 100 mL Omnipaque-350 intravenous contrast. Additional 3D reconstructions utilizing coronal maximum intensity projection (MIP) were per formed. Automated exposure control and iterative reconstruction technique were employed. The dose-randi gth product was 128.20 mGy-cm. COMPARISON: 11/15/2019 FINDINGS: Hyperexpansion of lungs with moderate emphysema. Persistent airspace disease in the superior segment of the right upper lobe which is grossly had a more reticulonodular pattern suggestive of lymphangiti c carcinomatosis but now has a more bandlike appearance with increasing volume loss and architectural distortion likely reflecting atelectasis/scarring related to interval treatment of metastatic lung c ancer. In the region of volume loss posterior to the region of scarring is a small right pleural effu taz. Interval increase in size of a 10 x 5 mm spiculated left upper lobe pulmonary nodule near a reg ion of chronic scarring at the anteromedial left upper lobe which has increased from 4 x 2 mm. There is also a new 5 mm spiculated nodule at the superior segment of the left upper lobe. Unchanged linear band of discoid atelectasis/scarring at the right middle lobe. No other regions of lung disease susp icious for pneumonia. No pulmonary edema or pneumothorax. Heart size is normal. Atherosclerotic coron shameka artery calcific calcification. No pericardial effusion. Thoracic aorta is normal in caliber with no dissection. The previously seen enlarged and likely metastatic right hilar lymphadenopathy is also improved. 4.5 cm cyst at the left hepatic lobe. Interval increase in size of a couple hypodense like ly metastatic lesions currently measuring 16 and 13 mm in maximal diameters in segment 3 and at the j unction of segments 5 and 8 respectively which previously measured 1.1 and 0.9 cm in corresponding di mensions on the prior study. There is a 9 mm hypodense nodule at the junction of segments 2A and 3 of the liver which is not visualized on the prior study. Mild thoracic dextroscoliosis with severe spon dylosis. Left reversed total shoulder arthroplasty. There are multiple scattered tiny sclerotic bone lesions which can be seen dating back to 05/23/2017 which were without evident increased FDG uptake o n prior PET study most likely representing small bone islands. IMPRESSION: 1. Interval improvement in airspace disease in the right lung along with decrease in the adjacent rig ht hilar lymphadenopathy likely representing response to treatment of metastatic disease with residua l atelectasis/scarring. 2. A few new and enlarging pulmonary nodules the left lung and hypodense hepatic nodules consistent w ith progression of metastatic disease. 3. Very small right pleural effusion and a region of scarring posterior to the superior segment of th e right upper lobe. 4. Moderate emphysema. Reviewed, dictated and finalized at location B. IMPRESSION: 1. Interval improvement in airspace disease in the right lung along with decrea se in the adjacent right hilar lymphadenopathy likely representing response to treatment of metastatic disease with residual atelectasis/scarring. 2. A few new and enlarging pulmonary nodules the left lung and hypodense hepati c nodules consistent with progression of metastatic disease. 3. Very small right pleural effusion and a region of scarring posterior to the superior segment of the right upper lobe. 4. Moderate emphysema.
[2020-02-14 14:54] LABS: Estimated Glomerular Filt Rate 39
== END ==
PROVIDERS: PCP Internal Medicine; Visit Provider Internal Medicine Medical Oncology
DX: C34.12 Malignant neoplasm of upper lobe, left bronchus or lung (principal); R91.8 Other nonspecific abnormal finding of lung field; J90 Pleural effusion, not elsewhere classified; J43.9 Emphysema, unspecified
CPT/HCPCS: 71260; Q9967

== ENCOUNTER 2020-04-17 10:09 | Outpatient (CLI) | payer MEDICARE, BC, SELFPAY ==
--- NOTE | ~2020-04-17 | CT_ITS ---
EXAMINATION: CT chest abdomen pelvis w con DATE: 04/17/2020 10:38 INDICATION: Malignant neoplasm of the upper lobe of the left lung TECHNIQUE: Transaxial computed tomographic images of the chest, abdomen, and pelvis were obtained aft er the administration of 100 cc of Omnipaque 350 intravenous contrast. The dose-length product (DLP) was 222.87 mGy-cm. Automated exposure control and iterative reconstruction technique were employed. COMPARISON: 02/14/2020, 12/03/2019 FINDINGS: CHEST CT: There is moderate emphysema. There is persistent but decreased bandlike opacity superior segment of t he right lower lobe. An 8 mm x 5 mm spiculated nodule adjacent to an area of scarring in the left upp er lobe is not significantly changed (image 30). A nodule previously seen in the superior segment of the left lower lobe has decreased in size. A trace right pleural effusion is decreased in size since the prior examination. There is no pneumothorax. The heart size is normal. There is stable mild right hilar lymphadenopathy. Calcified coronary artery atherosclerosis is noted. There are changes of left total shoulder arthroplasty. There is a sclerotic lesion in the T6 vertebral body. ABDOMEN/PELVIS CT: There are multiple hypoattenuating masses of the liver. Those identified on the most recent compariso n CT with contrast has slightly decreased in size and have decreased in density. A 1.4 cm lesion in l iver segment V was below the imaged field of view on the comparison examination. There is a 4.[address] in the left hepatic lobe. The gallbladder is surgically absent. There is mild enlargement of the c ommon bile duct and central intrahepatic ducts which is likely due to post cholecystectomy state. Non obstructing stones of the kidneys measure up to 3 mm on the right. There is calcified atherosclerosis of the aorta and many of the other arteries. No pathologically enlarged abdominal or pelvic lymph no marcelo are identified. There is an unchanged 5.2 cm cystic lesion of the left adnexa which did not demon strate suspicious FDG uptake. IMPRESSION: 1. Decreasing opacity in the superior segment of the right lower lobe and decrease in size and densit y of liver metastases consistent with response to therapy. 2. Stable left upper lobe nodule, likely metastatic disease. 3. T6 vertebral body lesion suspicious for metastatic disease. Reviewed, dictated and finalized at location A. [employer] TECHNICIAN IMPRESSION: 1. Decreasing opacity in the superior segment of the right lower lobe and decre ase in size and density of liver metastases consistent with response to therapy . 2. Stable left upper lobe nodule, likely metastatic disease. 3. T6 vertebral body lesion suspicious for metastatic disease.
[2020-04-17 10:34] LABS: Estimated Glomerular Filt Rate 53
== END 2020-04-17 10:10 | disposition home or self-care (01) ==
PROVIDERS: PCP Internal Medicine; Visit Provider Internal Medicine Medical Oncology
DX: C34.12 Malignant neoplasm of upper lobe, left bronchus or lung (principal); C78.7 Secondary malignant neoplasm of liver and intrahepatic bile duct; M89.9 Disorder of bone, unspecified
CPT/HCPCS: 71260; 74177; Q9967

== ENCOUNTER 2020-05-29 16:52 | Emergency (ER) | payer MEDICARE, BC, SELFPAY ==
[2020-05-29] VITALS (8 sets, daily range): BP systolic 109–124; BP diastolic 54–70; PULSE 71–88; RESP 20–30; O2SAT 95–100
--- NOTE | ~2020-05-29 | CT_ITS ---
EXAMINATION: CTA chest PE protocol EXAM DATE: 05/29/2020 18:46 INDICATION: hx of metastatic lung cancer, dyspnea. TECHNIQUE: Spiral CTA of the chest (pulmonary arteries) was performed with 100 cc Omnipaque 350 intr avenous contrast injection. Images were acquired during the pulmonary arterial phase. Coronal maxi mum intensity projection 3D-reconstructions were created by the technologist on dedicated workstation . Axial, coronal and sagittal reformatted images were reviewed. The dose-length product (DLP) for t his examination was 133.70 mGy-cm. The exposure was tailored according to patient size (auto mA exp osure control), and iterative reconstruction (ASIR) was used as additional dose reduction technique. Comparison is made to prior examination from 04/17/2020. FINDINGS: Pulmonary arteries are well opacified and without intraluminal filling defects. No thora cic aortic dissection. Infiltrative soft tissue density insinuating into the right hilum with hilar lymphadenopathy, circumferential encasement of the bronchus intermedius. Subcarinal lymph node or nod es measures 2.8 x 1.3 cm. Likely precarinal lymphadenopathy but there is dense artifact from the SVC contrast. Severe chronic emphysema. Trace right pleural effusion. Moderate hyperinflation. Tracheob ronchial tree is patent. There is no pneumothorax. Heart normal in size. There is mild coronary arterial calcification, arterial sclerosis. Low-density lesion between the right and left liver lobes measuring about 3.5 cm, another smaller in the left liver lobe lateral segment measuring 1.3 cm, probably metastatic disease. Cholecystectomy cl ips. Bilateral nephrolithiasis. There is an osteoblastic lesion in the inferior endplate of the T6 v ertebral body measuring 1.2 cm. There is left shoulder replacement. Compared to prior study, suspect significant increase in amount of right hilar soft tissue, and devel opment of the adenopathy. The largest liver lesion appears to have increased substantially as well. IMPRESSION: 1. Malignancy insinuating throughout right hilum, associated mediastinal and right hilar lymphadenop athy. Significant interval progression. 2. Liver metastases, one of which likely increased substantially in size. 3. T6 metastatic lesion unchanged. 4. Severe emphysema. Moderate hyperinflation. 5. Trace right pleural effusion. Reviewed, dictated and finalized at location A. TAL WATCH ASSEMBLER IMPRESSION: 1. Malignancy insinuating throughout right hilum, associated mediastinal and r ight hilar lymphadenopathy. Significant interval progression. 2. Liver metastases, one of which likely increased substantially in size. 3. T6 metastatic lesion unchanged. 4. Severe emphysema. Moderate hyperinflation. 5. Trace right pleural effusion.
--- NOTE | 2020-05-29 17:03 | ED.SOB ---
HPI - SOB/Dyspnea General Chief Complaint: Shortness of Breath/Dyspnea Stated Complaint: SOB Time Seen by Provider: 05/29/20 17:03 Source: patient, family and EMS Mode of arrival: EMS Limitations: dementia History of Present Illness HPI Narrative: Patient is an 79-year-old female with a history of dementia, metastatic lung cancer, currently oxygen dependent on 2 to 3 L via nasal cannula, who presents to the emergency department for evaluation of shortness of breath. provides a history as patient is pleasantly demented and cannot participate in the history. He states that whenever the patient gets up to do anything exertional she becomes short of breath after walking only a few steps. He states that her heart rate will go up even though her oxygen will remain the same on her 2 to 3 L nasal cannula. Patient does not overtly complain to him. He states that she does appear to be panicked during those moments but then it feels improved when she rests. Patient continues to smoke, when EMS arrived to their home she was hooked up to the oxygen actively smoking a cigarette. Patient currently appears in no distress whatsoever, laying pleasantly smiling on the bed. Related Data Home Medications Medication Instructions Recorded Confirmed acetaminophen 325 mg tablet 650 mg PO Q6H PRN tablet 05/01/19 01/05/20 aspirin 81 mg chewable tablet 81 mg PO DAILY 05/01/19 01/05/20 multivitamin 1 tablet PO DAILY 05/01/19 01/05/20 pramipexole 0.125 mg tablet 0.125 mg PO DAILY tablet 05/01/19 01/05/20 dexamethasone 4 mg PO TID 01/05/20 01/05/20 olaparib 200 mg PO BID 01/05/20 01/05/20 pantoprazole 40 mg PO QAM 01/05/20 01/05/20 Allergies Allergy/AdvReac Type Severity Reaction Status Date / Time alendronate sodium Allergy Unknown Unknown Verified 05/29/20 17:08 bupropion Allergy Unknown Unknown Verified 05/29/20 17:08 cilostazol Allergy Unknown Unknown Verified 05/29/20 17:08 hydrocodone Allergy Unknown Unknown Verified 05/29/20 17:08 levofloxacin Allergy Unknown Unknown Verified 05/29/20 17:08 loratadine Allergy Unknown Unknown Verified 05/29/20 17:08 Penicillins Allergy Unknown Unknown Verified 05/29/20 17:08 Quinolones Allergy Unknown Unknown Verified 05/29/20 17:08 Review of Systems Review of Systems: ROS unobtainable: Yes unobtainable due to mental status [facility] Past Medical History Medical History (Updated 05/29/20 @ 19:01 by Kely Hanna MD) Anemia History of iron deficiency anemia with subsequent iron overload, no longer on medication. Anxiety and depression Chronic kidney disease, stage 3 Baseline creatinine between 1.0 and 1.20. Chronic obstructive pulmonary disease Chronic respiratory failure with hypoxia Connective tissue disorder Poorly documented in her chart over the years, and the patient her cannot provide any further details. Dementia Diastolic dysfunction Echocardiogram in November 2015 showed normal left ventricular systolic function and size with impaired diastolic relaxation grade 1 indigestion fraction estimated at 60 to 65% with mild mitral valve prolapse in the anterior leaflet, mild mitral valve regurgitation and mild tricuspid valve regurgitation. Essential hypertension Malignant carcinoid tumor of lung Initially diagnosed in 2017, treated with radiation therapy. Recurrent cancer with evidence of metastatic disease To the lymph nodes, liver, and pleural lining on PET scan in November 2019. Nephrolithiasis Osteoporosis Paroxysmal supraventricular tachycardia (~11/2015) Peripheral vascular disease Of the lower extremities with claudication for which she takes aspirin, previously on clopidogrel. She has been deemed not a surgical candidate. Personal history of arterial venous malformation (AVM) (~09/2018) Multiple AVMs noted from the cecum to the proximal ascending colon on colonoscopy per Dr. Jean. Protein-calorie malnutrition Vitamin B12 deficiency Surgical History Surgical History (Reviewed 05/12
--- NOTE | 2020-05-29 17:27 | ECG_ITS ---
Measurements Intervals [place] Rate: 80 P: 75 CT: 131 QRS: 69 QRSD: 85 T: -5 QT: 389 QTc: 449 Interpretive Statements SINUS RHYTHM WITH MARKED SINUS ARRHYTHMIA ATRIAL PREMATURE COMPLEXES NONSPECIFIC T-WAVE ABNORMALITY- DIFFUSE LEADS BASELINE ARTIFACT- I, II, III, AVR, AVL, AVF, V1-V6 BORDERLINE ECG Electronically Signed On 05-30-2020 7:23:29 COLLATERAL SPECIALIST by Aubrey Moore D.O.
[2020-05-29 17:54] LABS: Basophils Percent Auto 0.3 % (0.2-1.2); Eosinophils Absolute Auto 0.1 K/mm3 (0-0.3); Eosinophils Percent Auto 1.3 % (0-4.4); Hematocrit 35.5 % (37.0-47.0); Hemoglobin 11.6 g/dL (12.0-15.0); Immature Granulocyte Absolute 0.02 K/mm3 (0.00-0.031); Immature Granulocyte Percent A 0.3 % (0-0.5); Lymphocytes Absolute Auto 0.57 K/mm3 (0.9-3.2); Lymphocytes Percent Auto 8.2 % (18.3-44.2); Mean Corpuscular HGB Conc 32.7 g/dl (32-36); Mean Corpuscular Hemoglobin 34.1 pg (26-34); Mean Corpuscular Volume 104.4 fl (80-100); Mean Platelet Volume 9.1 fl (7.4-10.4); Monocytes Absolute Auto 1.1 K/mm3 (0.1-0.6); Monocytes Percent Auto 16.2 % (2.6-8.5); Neutrophils Absolute Auto 5.1 K/mm3 (1.3-6.7); Neutrophils Percent Auto 73.7 % (45.5-73.1); Platelet Count Result 178 k/mm3 (150-375); Red Cell Distribution Width 12.9 % (11.5-14.5); White Blood Count 6.9 K/mm3 (4.5-10.0)
[2020-05-29] MEDS: ALBUTEROL SULFATE NEB 2.5 MG/0.5 ML INH 5 MG INHALATION (17:56)
[2020-05-29] MEDS: IPRATROPIUM BR 0.02% INH SOLN 0.5 MG/2.5 ML VIAL INHALATION (17:56)
[2020-05-29 18:04] LABS: INR 0.9; Prothrombin Time 13.2 Seconds (11.1-14.7)
[2020-05-29 18:05] LABS: Partial Thromboplastin Time 29.8 SECONDS (22.3-36.8)
[2020-05-29 18:07] LABS: Alanine Aminotransferase 16 U/L (4-35); Albumin Level 3.4 g/dL (3.5-5.1); Alkaline Phosphatase 87 U/L (38-126); Anion Gap 5 mmol/L (8-16); Aspartate Amino Transferase 30 U/L (14-36); Bilirubin,Total 0.3 mg/dL (0.2-1.3); Blood Urea Nitrogen 18 mg/dL (7-17); Calcium 8.8 mg/dL (8.4-10.2); Carbon Dioxide 36 mmol/L (22-30); Chloride 96 mmol/L (98-107); Estimated Glomerular Filt Rate 48; Glucose 97 mg/dL (65-105); Potassium 3.4 mmol/L (3.4-5.0); Sodium 137 mmol/L (137-145)
[2020-05-29] MEDS: methylPREDNISolone SOD SUCC 125 MG VIAL IV PUSH (18:07)
[2020-05-29] MEDS: SODIUM CHLORIDE 0.9% IV 500 ML 999 ML IV CONT (18:07)
[2020-05-29 18:09] LABS: Alveolar/Arterial O2 Gradient 74.3 mmHg; Base Excess ABG 5.3 mEq/l (+/-2.0); Carboxyhemoglobin 5.6 % THb (0-2.0); Fractional Inspired Oxygen 36 %; HCO3 ABG 31.8 mEq/l (22.0-26.0); Methemoglobin ABG 0.1 %THb (0-1.5); Oxygen Saturation ABG 98.1 % (95.0-100.0); Oxyhemoglobin 91.5 % THb (90.0-100.0); PCO2 ABG 55.4 mmHg (35.0-45.0); PO2 ABG 118.1 mmHg (80.0-100.0); PO2 FiO2 Ratio Arterial Blood 3.28 %; Reduced Hemoglobin 2.8 %THb (0-5.0); Total Hemoglobin 12.3 g/dL (12.0-18.0); pH ABG 7.377 (7.350-7.450)
[2020-05-29 18:10] LABS: Device NASAL CANNULA; Modified Allen's Test Pass; Site Drawn RIGHT RADIAL
[2020-05-29 18:18] LABS: NT Pro B Type Natriuretic Pept 533 PG/ML (5-100); Troponin I < 0.012 ng/mL (0.000-0.034)
--- NOTE | 2020-05-29 19:30 | PC.NURSE ---
patient ready for discharge. went home to get O2 tank. patient on stretcher. will keep on pulse ox and O2.
--- NOTE | 2020-05-29 20:02 | PC.NURSE ---
back with home O2 tank. patient assisted to wheelchair and then to restroom. patient with ARMANDO but recovers quickly with coaching on breathing.
== END 2020-05-29 20:04 | disposition home or self-care (01) ==
PROVIDERS: Emergency Provider Emergency Medicine; PCP Internal Medicine
DX: C78.00 Secondary malignant neoplasm of unspecified lung (principal); F03.90 Unspecified dementia, unspecified severity, without behavioral disturbance, psychotic disturbance, mood disturbance, and anxiety; Z99.81 Dependence on supplemental oxygen; I12.9 Hypertensive chronic kidney disease with stage 1 through stage 4 chronic kidney disease, or unspecified chronic kidney disease; N18.30 Chronic kidney disease, stage 3 unspecified; J44.9 Chronic obstructive pulmonary disease, unspecified; J96.11 Chronic respiratory failure with hypoxia; C77.9 Secondary and unspecified malignant neoplasm of lymph node, unspecified; C78.7 Secondary malignant neoplasm of liver and intrahepatic bile duct; C78.2 Secondary malignant neoplasm of pleura; F17.210 Nicotine dependence, cigarettes, uncomplicated; M81.0 Age-related osteoporosis without current pathological fracture; I73.9 Peripheral vascular disease, unspecified; E53.8 Deficiency of other specified B group vitamins; Z79.82 Long term (current) use of aspirin; Z87.442 Personal history of urinary calculi; Z86.2 Personal history of diseases of the blood and blood-forming organs and certain disorders involving the immune mechanism; Z98.42 Cataract extraction status, left eye; Z98.41 Cataract extraction status, right eye; Z96.612 Presence of left artificial shoulder joint; I49.1 Atrial premature depolarization; R94.31 Abnormal electrocardiogram [ECG] [EKG]
CPT/HCPCS: 36415; 36600; 71275; 80053; 82375; 82805; 83050; 83880; 84484; 85025; 85610; 85730; 93005; 94640; 96361; 96374; 99284; J2930; J7040; Q9967

== ENCOUNTER 2020-07-16 16:17 | Emergency (ER) | payer MEDICARE, BC, SELFPAY ==
[2020-07-16] VITALS (10 sets, daily range): BP systolic 97–134; BP diastolic 32–96; PULSE 64–79; RESP 17–27; TEMP 37.2; O2SAT 95–100
--- NOTE | ~2020-07-16 | CT_ITS ---
EXAMINATION: CT brain wo con DATE: 07/16/2020 17:43 INDICATION: Dizziness TECHNIQUE: Computed tomography (CT) of the head was performed without intravenous contrast. The dose- length product was 529.67 mGy-cm. Automated exposure control and iterative reconstruction technique were employed. COMPARISON: CT dated 01/05/2020 FINDINGS: Generalized atrophy. There are scattered mild periventricular and subcortical white matter changes, most likely related to small vessel ischemic disease (microangiopathy). There is intracrania l atherosclerosis. No acute intracranial hemorrhage, infarction, mass or mass effect. Basilar cistern s are patent. Mild right sphenoid sinusitis. Mastoids are pneumatized. No depressed skull fractures. IMPRESSION: 1. No acute intracranial abnormality. 2: Right sphenoid sinusitis. Reviewed, dictated and finalized at location A. WASHER
--- NOTE | ~2020-07-16 | XR_ITS ---
EXAMINATION: XR chest 1V portable 07/16/2020 17:52 INDICATION: Shortness of breath. COPD. Lung cancer. PROCEDURE: AP view of the chest COMPARISON: Comparison to multiple prior studies sequentially, with oldest reviewed study dated 11/30. FINDINGS: The lungs are clear. The cardiomediastinal silhouette is within normal limits. Right hilar mass seen on prior examination not visualized currently, possibly representing interval response to therapy. There are no pleural effusions. There is no pneumothorax suspected. The lungs are hyperinf lated which is consistent with, but not diagnostic of chronic obstructive pulmonary disease. There is scoliosis. IMPRESSION: 1: NO ACUTE CARDIOPULMONARY DISEASE. Reviewed, dictated and finalized at location A. EO OPERATOR
--- NOTE | 2020-07-16 17:25 | ED.GENADULT ---
HPI - General Adult General Chief complaint: Unspecified Stated complaint: Bursing, Bilateral Leg Swelling Time Seen by Provider: 07/16/20 17:09 Source: patient Mode of arrival: ambulatory Limitations: no limitations History of Present Illness HPI narrative: Patient is an 79-year-old female with metastatic lung cancer who presents from home for evaluation of bruising to the bilateral arms and left leg has been slightly distended and more jittery over the recent past. Patient is followed by Dr. Montanez with oncology on arrival patient notes mild headache otherwise denies any acute URI symptoms vomiting diarrhea rectal bleeding or melena. Patient is currently still smoking. Patient denies recent fall. Related Data Home Medications Medication Instructions Recorded Confirmed acetaminophen 325 mg tablet 650 mg PO Q6H PRN tablet 05/01/19 01/05/20 aspirin 81 mg chewable tablet 81 mg PO DAILY 05/01/19 01/05/20 multivitamin 1 tablet PO DAILY 05/01/19 01/05/20 olaparib 200 mg PO BID 01/05/20 01/05/20 Allergies Allergy/AdvReac Type Severity Reaction Status Date / Time alendronate sodium Allergy Unknown Unknown Verified 07/16/20 18:11 bupropion Allergy Unknown Unknown Verified 07/16/20 18:11 cilostazol Allergy Unknown Unknown Verified 07/16/20 18:11 hydrocodone Allergy Unknown Unknown Verified 07/16/20 18:11 levofloxacin Allergy Unknown Unknown Verified 07/16/20 18:11 loratadine Allergy Unknown Unknown Verified 07/16/20 18:11 Penicillins Allergy Unknown Unknown Verified 07/16/20 18:11 Quinolones Allergy Unknown Unknown Verified 07/16/20 18:11 Review of Systems Review of Systems: All systems reviewed & are unremarkable except as noted in HPI and below PMFSH Past Medical History Medical History (Updated 07/16/20 @ 19:24 by Thang Forrester PA-C) Anemia History of iron deficiency anemia with subsequent iron overload, no longer on medication. Anxiety and depression Chronic kidney disease, stage 3 Baseline creatinine between 1.0 and 1.20. Chronic obstructive pulmonary disease Chronic respiratory failure with hypoxia Connective tissue disorder Poorly documented in her chart over the years, and the patient her cannot provide any further details. Dementia Diastolic dysfunction Echocardiogram in November 2015 showed normal left ventricular systolic function and size with impaired diastolic relaxation grade 1 indigestion fraction estimated at 60 to 65% with mild mitral valve prolapse in the anterior leaflet, mild mitral valve regurgitation and mild tricuspid valve regurgitation. Essential hypertension Malignant carcinoid tumor of lung Initially diagnosed in 2017, treated with radiation therapy. Recurrent cancer with evidence of metastatic disease To the lymph nodes, liver, and pleural lining on PET scan in November 2019. Nephrolithiasis Osteoporosis Paroxysmal supraventricular tachycardia (~11/2015) Peripheral vascular disease Of the lower extremities with claudication for which she takes aspirin, previously on clopidogrel. She has been deemed not a surgical candidate. Personal history of arterial venous malformation (AVM) (~09/2018) Multiple AVMs noted from the cecum to the proximal ascending colon on colonoscopy per Dr. Jean. Protein-calorie malnutrition Vitamin B12 deficiency Surgical History Surgical History History of bilateral cataract extraction History of cholecystectomy (~2000) History of reverse total replacement of left shoulder joint (~2011) History of tubal ligation (~1971) Family History Family History Mother Patient's mother is in good health Father Family history of malignant neoplasm Pancreatic cancer Sibling Diabetes mellitus Other Family history of cardiovascular disease Hypertension Social History Social History Social History:
[2020-07-16 18:02] LABS: Basophils Percent Auto 0.1 % (0.2-1.2); Hematocrit 37.4 % (37.0-47.0); Hemoglobin 12.3 g/dL (12.0-15.0); Immature Granulocyte Absolute 0.39 K/mm3 (0.00-0.031); Immature Granulocyte Percent A 5.5 % (0-0.5); Lymphocytes Absolute Auto 0.15 K/mm3 (0.9-3.2); Lymphocytes Percent Auto 2.1 % (18.3-44.2); Mean Corpuscular HGB Conc 32.9 g/dl (32-36); Mean Corpuscular Hemoglobin 33.4 pg (26-34); Mean Corpuscular Volume 101.6 fl (80-100); Mean Platelet Volume 10.4 fl (7.4-10.4); Monocytes Absolute Auto 0.2 K/mm3 (0.1-0.6); Monocytes Percent Auto 3.1 % (2.6-8.5); Neutrophils Absolute Auto 6.4 K/mm3 (1.3-6.7); Neutrophils Percent Auto 89.2 % (45.5-73.1); Nucleated Red Blood Cells Perc 0.4 % (0.0-0.2); Platelet Count Result 137 k/mm3 (150-375); Red Blood Count 3.68 M/mm3 (4.2-5.4); Red Cell Distribution Width 17.5 % (11.5-14.5); White Blood Count 7.1 K/mm3 (4.5-10.0)
[2020-07-16] MEDS: SODIUM CHLORIDE 0.9% IV 500 ML 999 ML IV CONT (18:03)
[2020-07-16 18:14] LABS: Ovalocytes 1+ (NORMAL); Platelet Estimate Decreased (Adequate)
[2020-07-16 18:20] LABS: Alanine Aminotransferase 20 U/L (4-35); Albumin Level 4.2 g/dL (3.5-5.1); Alkaline Phosphatase 97 U/L (38-126); Anion Gap 6 mmol/L (8-16); Aspartate Amino Transferase 29 U/L (14-36); Bilirubin,Total 0.6 mg/dL (0.2-1.3); Blood Urea Nitrogen 26 mg/dL (7-17); CRP < 0.5 mg/dL (<1.0); Calcium 9.4 mg/dL (8.4-10.2); Carbon Dioxide 34 mmol/L (22-30); Chloride 99 mmol/L (98-107); Creatine Kinase 27 U/L (30-135); Estimated CRCL calculation 18 ml/min; Estimated Glomerular Filt Rate 39; Glucose 138 mg/dL (65-105); Potassium 4.4 mmol/L (3.4-5.0); Sodium 139 mmol/L (137-145)
[2020-07-16 18:24] LABS: INR 0.9; Prothrombin Time 12.6 Seconds (11.1-14.7)
[2020-07-16 18:26] LABS: Partial Thromboplastin Time 25.6 SECONDS (22.3-36.8)
[2020-07-16 18:30] LABS: Add Urine Microscopic? YES; Appearance Urine Clear (Clear); Bacteria Urine Trace /hpf; Bilirubin Urine Negative (Negative); Blood Urine Negative (Negative); Color Urine Yellow (Yellow); Glucose Urine UA Negative (Negative); Ketones Urine Negative (Negative); Leukocyte Esterase Ur Negative LEU/UL (Negative); Mucus Urine Rare /lpf; Nitrate Urine Negative (Negative); Protein Urine 1+ mg/dL (Negative); Specific Grav Ur 1.014 (1.001-1.035); Squamous Epithelial Cell Urine Many /hpf (Few); WBC Urine 0-3 /hpf
--- NOTE | 2020-07-16 19:21 | PC.NURSE ---
Assumed care of Pt. report from RODERICK Garcia
== END 2020-07-16 19:30 | disposition home or self-care (01) ==
PROVIDERS: Emergency Medicine Emergency Medical Services; Emergency Provider Emergency Medicine; PCP Internal Medicine
DX: T14.8XXA Other injury of unspecified body region, initial encounter (principal); E86.0 Dehydration; F17.210 Nicotine dependence, cigarettes, uncomplicated; D64.9 Anemia, unspecified; F41.9 Anxiety disorder, unspecified; F32.9 Major depressive disorder, single episode, unspecified; I12.9 Hypertensive chronic kidney disease with stage 1 through stage 4 chronic kidney disease, or unspecified chronic kidney disease; N18.30 Chronic kidney disease, stage 3 unspecified; J44.9 Chronic obstructive pulmonary disease, unspecified; J96.11 Chronic respiratory failure with hypoxia; F03.90 Unspecified dementia, unspecified severity, without behavioral disturbance, psychotic disturbance, mood disturbance, and anxiety; Z87.442 Personal history of urinary calculi; X58.XXXA Exposure to other specified factors, initial encounter
CPT/HCPCS: 36415; 70450; 71045; 80053; 81001; 82550; 85025; 85610; 85730; 86140; 96360; 99284; J7040